=== PATIENT | female | born 1945 | race Caucasian/White ===

== ENCOUNTER 2016-08-24 06:18 | Day surgery (SDC) | payer OTHER ==
[2016-08-16 11:15] VITALS: BMI 22.8
--- NOTE | 2016-08-23 19:47 | DS ---
Discharge Summary Reason For Visit: PAINFUL BUNION DEFORMITY AND PAINFUL HAMMER TOE - Home Medications Comprehensive Discharge Medication List: Ambulatory Orders Levothyroxine [Synthroid -] 75 mcg PO DAILY 07/05/14 Ibuprofen 400 mg PO PRN PRN 08/16/16
[2016-08-24] MEDS ORDERED: LIDOCAINE HCL/PF 2% SDV 5ML VIAL ONE (07:43)
[2016-08-24] MEDS ORDERED: MIDAZOLAM HCL 2 MG/2 ML SINGLE DOSE VIAL ONE (07:43)
[2016-08-24] MEDS ORDERED: PROPOFOL 20 ML ONE ×2 (07:43→07:45)
[2016-08-24] MEDS ORDERED: SUCCINYLCHOLINE CHLORIDE 200 MG/10 ML VIAL ONE (07:45)
[2016-08-24] MEDS ORDERED: LIDOCAINE HCL 1%, 10 MG/ML (20ML VIAL) ONE (07:46)
[2016-08-24] MEDS ORDERED: BUPIVACAINE HCL/PF 0.5% (5MG/ML) 10 ML VIAL ONE (07:46)
[2016-08-24] MEDS ORDERED: ceFAZolin SODIUM 1 GM VIAL ONE (08:10)
[2016-08-24] MEDS ORDERED: ceFAZolin SODIUM 1 GM VIAL IVPB ONE (08:10)
[2016-08-24] MEDS ORDERED: DEXAMETHASONE SOD PHOSPHATE 4 MG/1 ML VIAL ONE (08:59)
[2016-08-24] MEDS ORDERED: DEXAMETHASONE SOD PHOSPHATE 4 MG/1 ML VIAL IM ONE (09:08)
[2016-08-24] MEDS ORDERED: BUPIVACAINE HCL/PF 0.5% (5MG/ML) 10 ML VIAL IJ ONE ×2 (09:08)
[2016-08-24] MEDS ORDERED: LIDOCAINE HCL 1%, 10 MG/ML (20ML VIAL) IJ ONE ×2 (09:08)
[2016-08-24] MEDS ORDERED: ONDANSETRON 4 MG/2 ML VIAL IVPUSH PRN (10:01)
[2016-08-24] MEDS ORDERED: oxyCODONE HCL 5 MG TABLET PO PRN (10:01)
[2016-08-24] MEDS ORDERED: LACTATED RINGERS SOLUTION 1,000 ML IV SCH (10:15)
--- NOTE | 2016-08-24 10:35 | OP ---
Operative Note - Note: Operative Date: 08/24/16 Pre-Operative Diagnosis: painful bunion deformity left foot, painful dislocated hammertoe deformity second toe left foot Operation: Arden osteotomy with .062 k wire left foot, second pipj arthroplasty with 2nd metatarsal ostctomy with .045 k wire left foot Findings: soft metatarsal head first with straw colored drainage on osteotomy soft second head of proximal phalanx left and second metatarsal head left foot Surgeon: Alma Rosa Arora Anesthesia: Fractional Specimens Removed: head of first metatarsal left, head of proximal phalanx second and head of second metatarsal left Estimated Blood Loss (mls): 10
[2016-08-24] MEDS ORDERED: ACETAMINOPHEN 325 MG TABLET (FP) PO PRN (10:57)
[2016-08-24 11:26] VITALS: TEMP 98
[2016-08-24 13:34] VITALS: BP 145/68; PULSE 60
--- NOTE | 2016-08-25 14:50 | PATH ---
Surgical Pathology Report Patient Name: MELINA GAFNFEY Med. Rec. #: [id number] /Age/Gender: 1945 (Age: 71) / F Account: [id number] Location: [facility] [place] [facility] Taken: 08/24/2016 Received: 08/24/2016 Reported: 08/25/2016 Physicians: Alma Rosa Arora DPM Specimen(s) Received BONE LEFT FOOT BUNION & BONE 2ND TOE HAMMER TOE LEFT FOOT Clinical History Painful left bunion deformity and painful second hammertoe deformity left foot Final Diagnosis BONE, LEFT FOOT BUNION AND LEFT SECOND TOE HUMMER TOE, BUNIONECTOMY AND ARTHROPLASTY: FRAGMENTS OF BONE AND CARTILAGE WITH DEGENERATIVE CHANGES. Electronically Signed Xavi Jiménez M.D. Gross Description Received in formalin labeled "second bone toe left foot, bone first bunion left foot" are 3 abreu, irregular portions of bone ranging from 1.2 x 0.7 x 0.6 cm to 2.0 x 1.5 x 0.4 cm. Pl[place]us[place] sections are submitted in one cassette, following decalcification. 08/24/2016 [facility]08/24/2016
--- NOTE | 2016-08-31 15:17 | OP ---
DATE OF OPERATION: 08/24/2016 OPERATION: Modified Lincoln bunionectomy with a transverse V osteotomy with 0.062 K-wire fixation, left foot, with a painful rigid 2nd proximal interphalangeal joint hammer digit with a dislocated dorsal base of the proximal phalanx overlying the metatarsal head of the 2nd metatarsal, left foot. 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 POSTOPERATIVE DIAGNOSIS: Painful hallux abductovalgus deformity of the left foot with a dislocated subluxed 2nd metatarsophalangeal joint with a hammer digit, painful 2nd toe, left foot. SURGEON: Alma Rosa Arora DPM SIDING MECHANIC: None. ANESTHESIA: Local with IV sedation. OPERATIVE FINDINGS AND PROCEDURE: The patient was prepped and brought into the operating room and placed on the table in supine position. A well-padded left ankle tourniquet was applied. The foot was elevated, prepped and draped in the usual sterile manner, and prior to the tourniquet, the patient received 1 g of Ancef preoperatively by Dr. Moran, the anesthesiologist. The tourniquet was then put on at 250 mmHg, and under satisfactory local anesthesia, after being blocked with lidocaine and Marcaine 0.5% plain, a 4-cm curvilinear medial incision was made at the level of the 1st metatarsophalangeal joint. The incision was deepened using sharp and blunt dissection, being careful to preserve all neurovascular structures and clamping and ligating any bleeders as necessary. The neurovascular bundle was identified and retracted dorsally and medially. The incision was carried down to the level of the capsule where a linear incision was made down to the level of the bone. At this time, all capsular ligamentous structures were freed from the head of the 1st metatarsal plantarly, medially, and dorsally. The lateral collateral ligaments were resected from the medial side of the incision freeing up the lateral sesamoid and the medial sesamoid. At this point, a transverse ostectomy was performed of the 1st metatarsal prominent dorsal medial eminence from superolateral to plantar medial, and the prominent exostosis removed from the 1st metatarsal head. There was noted to be some serous drainage and straw-colored drainage. The bone was semi-soft, and there was a small cystic area, and the 1st metatarsal head noted at this time. At this point, the foot was perpendicular to the table, and the transverse V osteotomy was made through and through from medial to lateral with the patients foot and bone perpendicular to the floor. The head was transposed laterally and approximated 1/3 with the width of the metatarsal. Using standard AO technique, the 0.062 K-wire was inserted from distal lateral to proximal medial, and the fixation through the head was noted to be stable on the capital fragment and in good alignment. The hallux was sitting in a more rectus position with good range of motion at this time. Using the osteotome and lynn, the remaining spicules were rasped smooth on the medial side of the remaining 1st metatarsal head. The wound was copiously irrigated with sterile saline, and the capsule was closed with 2-0 Vicryl suture, 3-0 Vicryl, and subcutaneous tissue was closed with 4-0 Vicryl sutures. The skin was then closed with 5-0 nylon in a running interlocking fashion. The wire was cut and a cap was placed over the 0.062 K-wire. Attention was then directed over the proximal interphalangeal joint of the 2nd toe, left foot, and the 2nd MPJ area of that 2nd left foot, and the incision, a 4-cm linear incision, was made over the head of the proximal interphalangeal joint going down past the 2 nd MPJ area overlying the 2nd MPJ joint. Attention was then directed where the incisions were deepened through the subcutaneous tissue. Care was taken to identify and retract all neurovascular structures, and at this time all bleeders were cauterized and ligated as necessary. A transverse tenotomy and capsulotomy were made at the proximal interphalangeal joint. The head of the proximal phalanx was freed, capsule and ligament attachments, and using a sagittal saw, the head of the proximal phalanx was resected and removed. The bone was noted to be soft, and there was a hollow cyst in the proximal phalanx shaft. There was a hollow area there after the bone was resected and removed. Attention was then directed to 2nd metatarsophalangeal joint, where the extensor tendon was retracted lateralwards. All the capsular ligamentous attachments were freed up around the head of the metatarsal and the base of the proximal phalanx. At this time, it was noted that the base of the proximal phalanx was completely dorsally on top of the head of the 2nd metatarsal, and the 2nd metatarsal was plantar grade. Patient was ambulating on that, and there was a 0.5 cm circumscribed hypertrophic lesion on the bottom of her foot with her chief complaint of pain being in that area. At this time, a transverse ostectomy was performed of the metatarsal head. The bone was soft. It had a lot of erosions at the distal metatarsal head and the neck of the metatarsal head. There was straw-colored drainage on cutting of the bone, as well. That bone was extremely soft. Using a 0.045 K-wire, the wire was retrograded through the cystic portion through the base of the proximal phalanx out the cystic portion of the toe going through the distal tuft to the 2nd toe and retrograded back through the metatarsal shaft. All the bone around the metatarsal head was noted to be free of spiculization. The area was copiously lavaged, and the wire was noted to be sitting in anatomic alignment with a matched 0.045 K-wire. At this time, the capsule was closed with 2-0 Vicryl sutures. The subcutaneous tissue was closed with 4-0 Vicryl sutures. Prior to the skin closure, the three simple interrupted sutures in the transverse extensor tenotomy were closed prior to the 4-0 subcutaneous closure. At this time, the toe was noted to fit in a rectus alignment. The hammer digit was relaxed, and the retrograde pressure underneath the 2nd metatarsal was noted to be in a rectus position. At this time, the skin was closed with a running interlocking 5.0 nylon suture. The wounds were cleaned with sterile saline. The pins were painted with Betadine paint. A 4-mm 1-mL dexamethasone injection was given between the two incision sites. They were reblocked with half and half 0.5% 0.25% Marcaine and lidocaine combination with no epinephrine. Approximately 5 more mL were given into the incision areas. The areas were painted with Betadine, Adaptic, gauze, and 4x4s and 4-inch Jessica were applied along with Co-Flex. A 4-inch Aaron wrap was applied to the foot. The tourniquet was released, and the foot was noted to have a normal hyperemic flush to all of the digits to preoperative levels. The patient was placed in a posterior fiberglass splint, and Aaron wraps were applied around that to hold the patient at 90 degrees. The patient will be strictly nonweightbearing. Currently, the patient tolerated the procedure well. She was sent to the recovery room with vital signs stable, and the patient will be discharged with written and oral instructions. They were also given to her preoperatively. WOUND EXPECTANCY: Clean-contaminated. HAYLEY ARITA/[id number]
== END 2016-08-24 13:20 | disposition home or self-care (01) ==
LOC: JASU-SURG 06:18
PROVIDERS: ATTEND Podiatrist
PROC: 0Q9 Lower Bones, Drainage (ICD-10-PCS; 2016-08-24)
PROC: 0QBR0ZZ Excision of Left Toe Phalanx, Open Approach (ICD-10-PCS; 2016-08-24)
PROC: 0QS Lower Bones, Reposition (ICD-10-PCS; principal; 2016-08-24 08:00)
DX: M20.12 Hallux valgus (acquired), left foot (principal); M21.612 Bunion of left foot; S93.125A Dislocation of metatarsophalangeal joint of left lesser toe(s), initial encounter; X58.XXXA Exposure to other specified factors, initial encounter; Y93.9 Activity, unspecified; Y92.9 Unspecified place or not applicable
CPT/HCPCS: 73630-TC-LT; 88304-TC; 88311-TC; 94760

== ENCOUNTER 2017-11-05 08:56 | Emergency (ER) | payer OTHER ==
[2017-11-05 09:11] VITALS: BP 159/70; PULSE 80; TEMP 98.8; BMI 21.9
--- NOTE | 2017-11-05 09:20 | PDOC ---
History of Present Illness - General Chief Complaint: Edema Stated Complaint: SENT BY PMD FOR VENOUS DOPPLER RIGHT LOWER LEG Time Seen by Provider: 11/05/17 08:59 History Source: Patient - History of Present Illness Initial Comments: 11/05/17 09:07 Pt is a 72 yo F with PMH of hypothyroid was sent by Dr. Molina to the ED for doppler of RLE. Pt states that RLE has been swollen for the past month and has not gone down. PT also states that she experiences pain in the R ankle/heel wihen she walks. She denies fever, chills, SOB, LOC, hemoptysis, dizziness, lightheadedness. She denies trauma, injury, recent travel, hormone use, recent surgeries. PCP: Dr. Molina PMH: hypothyroid PSH: bunionectomy 2017 Meds: levothyroxine allergies: nkda Past History - Past Medical History Allergies/Adverse Reactions: Allergies Allergy/AdvReac Type Severity Reaction Status Date / Time No Known Allergies Allergy Verified 11/05/17 09:01 Home Medications: Ambulatory Orders Levothyroxine [Synthroid -] 75 mcg PO DAILY 07/05/14 Anemia: No Asthma: No Cancer: No Cardiac Disorders: No CVA: No COPD: No CHF: No Dementia: No Diabetes: No GI Disorders: No Disorders: No HTN: No Hypercholesterolemia: No Liver Disease: No Seizures: No Thyroid Disease: Yes (HYPOTHYROID) - Surgical History Abdominal Surgery: No Appendectomy: No Cardiac Surgery: No Cholecystectomy: No Lung Surgery: No Neurologic Surgery: No Orthopedic Surgery: No - Suicide/Smoking/Psychosocial Hx Smoking Status: No Smoking History: Former smoker Have you smoked in the past 12 months: No Number of Cigarettes Smoked Daily: 20 If you are a former smoker, when did you quit?: 2007 Hx Alcohol Use: No Drug/Substance Use Hx: No Substance Use Type: None Review of Systems - Review of Systems Constitutional: No: Chills, Fever, Weakness HEENTM: No: Recent change in vision Respiratory: Yes: Cough. No: Orthopnea, Shortness of Breath, Wheezing Cardiac (ROS): No: Chest Pain, Lightheadedness, Palpitations, Syncope ABD/GI: No: Constipated, Diarrhea, Nausea, Vomiting, Abdominal cramping : No: Burning, Dysuria Musculoskeletal: Yes: See HPI. No: Muscle Pain, Muscle Weakness, Neck Pain Integumentary: Yes: Other (RLE edema). No: Bruising, Dryness, Erythema, Lesions , Lumps Neurological: No: Headache, Numbness, Paresthesia, Weakness, Unsteady Gait, Ataxia *Physical Exam - Physical Exam General Appearance: Yes: Nourished, Appropriately Dressed. No: Apparent Distress HEENT: positive: EOMI, RONNI Neck: positive: Trachea midline, Supple. negative: Carotid bruit, Lymphadenopathy (R), Lymphadenopathy (L) Respiratory/Chest: positive: Lungs Clear, Normal Breath Sounds. negative: Crackles, Rales, Stridor, Wheezing Cardiovascular: positive: Regular Rhythm, Regular Rate, S1, S2. negative: Edema , JVD Vascular Pulses: Carotid (R): 2+, Carotid (L): 2+, Dorsalis-Pedis (R): 2+ Gastrointestinal/Abdominal: positive: Normal Bowel Sounds, Soft. negative: Rebound, Tenderness Musculoskeletal: positive: Other (Full ROM of R ankle). negative: CVA Tenderness, Decreased Range of Motion, Muscle Spasm Extremity: positive: Normal Capillary Refill, Swelling (RLE>LLE. 2+ pitting edema), Calf Tenderness (R proximal calf) Integumentary: positive: Normal Color, Dry, Warm, Swelling (RLE>LLE). negative : Erythema, Cold, Clammy, Moist, Petechiae, Rash, Bruising Neurologic: positive: landscape technician II-XII NML intact, Fully Oriented, Alert, Normal Mood/ Affect, Normal Response, Motor Strength 5/5 Medical Decision Making - Medical Decision Making 11/05/17 09:27 Pt is a 72 yo female with PMH of hypothyroid sent to ED by PCP for doppler of RLE. Pt has RLE edema >left DDX: DVT, PE, bakers cyst, cellulitis, septic arthritis, CHF, ARF, lymphatic obstruction, ankle injury, venous insufficiency, myxedema Pt does not have history of heart or kidney problems, lungs were clear and normal heart sounds. Low suspicion for CHF, ARF as causes for RLE edema. Patient denies recent trauma/injury, no concern for ankle fracture or injury. Patient is not tachycardic, not tachypneic, denies hemoptysis, no hx of cancer or recent surgery, no hx of DVT or PE. Well's score of 3. No mass palpable with knee extension, no bruising around ankle, low suspicion for gautam cyst rupture. Pt is afebrile, no erythema or warmth, low suspicion for cellulitis. Pt has pitting edema bilaterally R>L. Low suspicion for myxedema especially since no other signs of clinical hypothyroidism. Recommend PCP follow up. RLE doppler: No signs of DVT. Pt must have repeat study to confirm. DDX for swelling could include gout, venous insufficiency, lymphatic obstruction, hypothyroidism. Pt vital signs wnl, is ambulatory and does not have an acute process. Pt has good PCP follow up. Pt stable for discharge home with strict return precautions. Pt agreed with plan and verbalized understanding. *DC/Admit/Observation/Transfer Diagnosis at time of Disposition: Right leg swelling - Discharge Dispostion Disposition: HOME Condition at time of disposition: Stable Decision to Admit order: No - Referrals Referrals: Elpidio Molina MD [Staff Physician] - - Patient Instructions Printed Discharge Instructions: DI for Peripheral Edema, Unilateral Additional Instructions: You were seen here today because you were sent here by your doctor to rule out a DVT. A DVT is a clot in your leg that could cause swelling and pain and needs to be managed urgently. We did an ultrasound study of your right leg which showed no clots. You need to get another ultrasound study of your right leg in about one week to confirm. Please follow up with your PCP. Please elevate your legs at night and apply warm compresses if you experience pain. Follow up with your PCP. Please come back to the emergency room if: if your symptoms get worse, if your leg continues to swell, if you experience pain, if you notice any skin changes such as redness or bruising, if you are unable to walk, if you start getting short of breath or dizzy, or if any new concerning symptom develops. Thank you - Post Discharge Activity
[2017-11-05] MEDS ORDERED: ACETAMINOPHEN 325 MG TABLET (FP) PO ONE (09:43)
[2017-11-05] MEDS ORDERED: ACETAMINOPHEN 325 MG TABLET (FP) ONE (09:49)
--- NOTE | 2017-11-05 09:51 | PDOC ---
Attending Attestation - Resident Resident Name: RachelleMarisa - ED Attending Attestation I have performed the following: I have examined & evaluated the patient, The case was reviewed & discussed with the resident, I agree w/resident's findings & plan, Exceptions are as noted - HPI HPI: 11/05/17 09:45 72 F with h/o hypothyroid presents to ED with 1 month of RLE swelling. Pt denies any injury or falls. She states that the swelling started around her foot and ankle but has since progressed up to her lara. Pt denies any redness. Endorses pain with ambulation but is still able to walk without assistance. No h /o gout. No F/C. No recent travel/immobilization. No h/o DVT. - Physicial Exam PE: 11/05/17 09:51 "GENERAL: Awake, alert, and fully oriented, in no acute distress. HEAD: No signs of trauma EYES: PERRLA, EOMI, sclera anicteric, conjunctiva clear ENT: Auricles normal inspection, hearing grossly normal, nares patent, oropharynx clear without exudates. Moist mucosa NECK: Nontender, no stepoffs, Normal ROM, supple, no lymphadenopathy, JVD, or masses LUNGS: Breath sounds equal, clear to auscultation bilaterally. No wheezes, and no crackles HEART: Regular rate and rhythm, normal S1 and S2, no murmurs, rubs or gallops ABDOMEN: Soft, nontender, normoactive bowel sounds. No guarding, no rebound. No masses EXTREMITIES: + RLE edema, no bony tenderness, no erythema, normal ROM NEUROLOGICAL: Cranial nerves II through XII intact. 5/5 strength and sensation in all extremities, Normal speech, normal gait, normal cerebellar function SKIN: Warm, Dry, normal turgor, no rashes or lesions noted. " - Medical Decision Making 11/05/17 09:52 72 F with unilateral atraumatic swelling of RLE. Will need to r/o DVT, though pt with no known risk factors. Pt with no infectious symptoms, no erythema, normal ROM, making septic arthritis less likely. No history of trauma or injury and no bony tenderness on exam to necessitate XR imaging. - RLE doppler 11/05/17 10:13 Doppler negative for DVT Suspect msk etiology vs gout vs arthritis Will DC pt with ortho f/u. Pt instructed to repeat US in 1 week to confirm DVT ruled out. Pt is well appearing, with normal vitals. Clinically stable for DC at this time. I discussed the physical exam findings, ancillary test results and final diagnoses with the patient. I answered all of the patient's questions. The patient was satisfied with the care received and felt comfortable with the discharge plan and treatment plan. The patient agrees to follow up with the primary care physician within 24-72 hours.
== END 2017-11-05 10:54 | disposition home or self-care (01) ==
LOC: FER 08:56
DX: R22.41 Localized swelling, mass and lump, right lower limb (principal); E03.9 Hypothyroidism, unspecified; Z87.891 Personal history of nicotine dependence
CPT/HCPCS: 93971-TC; 99281-25

== ENCOUNTER 2018-01-19 23:30 | Observation (INO) | payer OTHER ==
--- NOTE | 2018-01-19 23:57 | PDOC ---
History of Present Illness - General Chief Complaint: Lightheaded Stated Complaint: Abnormal Labs (HGB) Time Seen by Provider: 01/19/18 23:39 - History of Present Illness Initial Comments: 01/20/18 00:32 This 72-year-old woman with a history of hypothyroidism but no other medical problems was sent to the ER because of an abnormal lab value. The patient was seen by her PMD () earlier today for a few week history of lightheadedness, especially with exertion(such as walking).She also has had some shortness of breath with exertion. She denies chest or abdominal pain. No known history of anemia. She denies black or bloody stools. The patient states that her lightheadedness resolved after "blew out " her ear in the office earlier today. No easy bruising/bleeding noted. No new medication/supplements/vitamin Past History - Past Medical History Allergies/Adverse Reactions: Allergies Allergy/AdvReac Type Severity Reaction Status Date / Time No Known Allergies Allergy Verified 11/05/17 09:01 Home Medications: Ambulatory Orders Levothyroxine [Synthroid -] 75 mcg PO DAILY 07/05/14 Anemia: No Asthma: No Cancer: No Cardiac Disorders: No CVA: No COPD: No CHF: No Dementia: No Diabetes: No GI Disorders: No Disorders: No HTN: No Hypercholesterolemia: No Liver Disease: No Seizures: No Thyroid Disease: Yes (HYPOTHYROID) - Surgical History Abdominal Surgery: No Appendectomy: No Cardiac Surgery: No Cholecystectomy: No Lung Surgery: No Neurologic Surgery: No Orthopedic Surgery: No - Suicide/Smoking/Psychosocial Hx Smoking Status: No Smoking History: Former smoker Have you smoked in the past 12 months: No Number of Cigarettes Smoked Daily: 20 If you are a former smoker, when did you quit?: 2007 Information on smoking cessation initiated: No Hx Alcohol Use: No Drug/Substance Use Hx: No Substance Use Type: None Review of Systems - Review of Systems Able to Perform ROS?: Yes Comments:: 12 point review of systems is negative except for what is noted in the history of present illness *Physical Exam - Vital Signs Last Vital Signs Temp Pulse Resp BP Pulse Ox 98.2 F 79 16 153/69 99 01/19/18 23:50 01/19/18 23:50 01/19/18 23:50 01/19/18 23:50 01/19/18 23:50 - Physical Exam Comments: GENERAL: Adult female, alert and oriented 3, in no acute distress HEAD: Normal with no signs of trauma. EYES: PERRLA, EOMI, sclera anicteric, conjunctiva clear. ENT: Ears normal, nares patent, oropharynx clear without exudates. Moist mucous membranes. NECK: Normal range of motion, supple without lymphadenopathy, JVD, or masses. LUNGS: Breath sounds equal, clear to auscultation bilaterally. No wheezes, and no crackles. HEART:Regular rate and rhythm, normal S1 and S2 without murmur, rub or gallop. ABDOMEN:.normal bowel sounds No guarding,tenderness or rebound.No masses No distention. Rectal: Light brown stool in ampulla; no masses palpable EXTREMITIES: Normal range of motion, no edema. No clubbing or cyanosis. No erythema, or tenderness. NEUROLOGICAL: Cranial nerves II through XII grossly intact. Normal speech. No focal neurological deficits. MUSCULOSKELETAL: Back non-tender to palpation, no CVA tenderness SKIN: Warm, Dry, normal turgor, no rashes or lesions noted. ED Treatment Course - LABORATORY CBC & Chemistry Diagram: 01/20/18 00:18 01/20/18 00:18 Medical Decision Making - Medical Decision Making 01/20/18 02:24 Repeat labs confirm severe anemia with hemoglobin 6.4/Hct 22.6 Stool heme negative [facility] not admit here; [facility]. 01/20/18 02:38 Case discussed with CHEYANNE Manley,[facility] service. Patient to be admitted for transfusion and workup of etiology of anemia. Inpatient admission, Dr Magana Plan discussed with patient and her son who understand and agree. 01/20/18 03:14 12-lead electrocardiogram performed and interpreted by me: Normal sinus rhythm at 70 bpm; there is left axis deviation; inverted T-wave in V4 and flattened T wave in V5 but no other ST or T-wave abnormalities. There is no previous tracing for comparison. 01/20/18 03:26 Portable chest x-ray is performed. preliminary interpretation: Borderline cardiomegaly, bilateral lung markings consistent with chronic changes; no effusion/infiltrates or masses evident. *DC/Admit/Observation/Transfer Diagnosis at time of Disposition: Anemia Qualifiers: Anemia type: unspecified type Qualified Code(s): D64.9 - Anemia, unspecified - Discharge Dispostion Condition at time of disposition: Guarded Decision to Admit order: Yes - Referrals - Patient Instructions - Post Discharge Activity
[2018-01-20 01:15] LABS: ALBUMIN 3.3 g/dl (3.4-5.0); ALK PHOS 121 U/L (45-117); ANION GAP 9 MMOL/L (8-16); BILIRUBIN,TOTAL 0.8 mg/dL (0.2-1); BLOOD UREA NITROGEN 18 mg/dL (7-18); CALCIUM 8.3 mg/dL (8.5-10.1); CHLORIDE 107 mmol/L (98-107); CO2 24 mmol/L (21-32); CREATININE 0.6 mg/dL (0.55-1.3); GLUCOSE,RANDOM 89 mg/dL (74-106); POTASSIUM 3.1 mmol/L (3.5-5.1); SGOT/AST 15 U/L (15-37); SGPT/ALT 14 U/L (13-61); SODIUM 141 mmol/L (136-145); TOT PROT 6.4 g/dl (6.4-8.2)
[2018-01-20 01:25] LABS: BASO % 1.1 % (0-2.0); EOS % 7.1 % (0-4.5); HEMATOCRIT 22.6 % (32.4-45.2); LYMPH % 22.4 % (8-40); MCHC 28.2 g/dl (32.0-36.0); MEAN CELL VOLUME 62.1 fl (80-96); MEAN PLT VOLUME 8.2 fl (7.5-11.1); MONO % 8.3 % (3.8-10.2); NEUT % 61.1 % (42.8-82.8); PLATELET COUNT 321 K/MM3 (134-434); RBC 3.63 M/mm3 (3.60-5.2); RDW 18.3 % (11.6-15.6)
[2018-01-20 01:27] LABS: MCH 17.5 pg (25.7-33.7)
[2018-01-20 01:29] LABS: HEMOGLOBIN 6.4 GM/dL (10.7-15.3)
[2018-01-20 02:00] LABS: ANISOCYTOSIS 3+; MACROCYTOSIS 0
[2018-01-20 02:01] LABS: INR 1.07 (0.83-1.09); PROTHROMBIN TIME (PATIENT) 12.6 SEC (9.7-13.0)
[2018-01-20 02:04] LABS: ACTIVATED PTT 27.4 SECONDS (25.2-36.5)
[2018-01-20] MEDS ORDERED: POTASSIUM CHLORIDE TABS 20 MEQ TABLET.ER (FP) PO ONE ×2 (02:07→02:10)
[2018-01-20 06:16] VITALS: BMI 21.5
[2018-01-20 07:15] LABS: PH,URINE 6.5 (4.5-8); URINE APPEARANCE Clear; URINE BILIRUBIN Negative (NEGATIVE); URINE COLOR Amber; URINE GLUCOSE (UA) Negative (NEGATIVE); URINE KETONE Negative (NEGATIVE); URINE LEUK ESTERASE Negative (NEGATIVE); URINE NITRITE Negative (NEGATIVE); URINE PROTEIN Negative (NEGATIVE); URINE UROBILINOGEN 0.2 (0.2-1.0)
--- NOTE | 2018-01-20 08:17 | HP ---
Admitting History and Physical - Past Medical History ...: No - Smoking History Smoking history: Former smoker Have you smoked in the past 12 months: No Aproximately how many cigarettes per day: 20 If you are a former smoker, when did you quit?: 2007 - Alcohol/Substance Use Hx Alcohol Use: No Home Medications - Allergies Allergies/Adverse Reactions: Allergies Allergy/AdvReac Type Severity Reaction Status Date / Time No Known Allergies Allergy Verified 11/05/17 09:01 - Home Medications Home Medications: Ambulatory Orders Levothyroxine [Synthroid -] 75 mcg PO DAILY 07/05/14 Physical Examination Vital Signs: Vital Signs Temperature 98.1 F 01/20/18 06:00 Pulse Rate 18 L 01/20/18 06:00 Respiratory Rate 70 H 01/20/18 06:00 Blood Pressure 144/60 01/20/18 06:00 O2 Sat by Pulse Oximetry (%) 98 01/20/18 06:00 Labs: CBC, BMP 01/20/18 00:18 01/20/18 00:18
--- NOTE | 2018-01-20 10:17 | HP ---
CHIEF COMPLAINT: shortness of breath PCP: Dr Jones HISTORY OF PRESENT ILLNESS: Patient is a 72 y/o female with as past medical history of hypothyroidism, osteoporosis and GERD. She reports with dizziness for the past week. She was evaluated by her primary care physician on 01/18/2018. Her hemoglobin was reported to be 6.1 and she was referred to the emergency department for emergent blood transfusion.Patient denies any dark stools. ER course was notable for: (1)hemoglobin 6.4 (2)Chest x-ray, COPD no acute infiltrate or effusion (3)ekg Normal sinus rhythm, Left axis deviation, nonspecific T-wave abnormality. Recent Travel:none PAST MEDICAL HISTORY:see hpi PAST SURGICAL HISTORY: kyphoplasty 2017 Social History:retired, resides at home with son Smoking:quit smoking last year Alcohol:quit "several" years ago Drugs: none Family History: mother: cancer unknown which type father: unknown Allergies No Known Allergies Allergy (Verified 11/05/17 09:01) HOME MEDICATIONS: Home Medications Medication Instructions Recorded Levothyroxine [Synthroid -] 75 mcg PO DAILY 07/05/14 REVIEW OF SYSTEMS CONSTITUTIONAL: Absent: fever, chills, diaphoresis, generalized weakness, malaise, loss of appetite, weight change HEENT: Absent: rhinorrhea, nasal congestion, throat pain, throat swelling, difficulty swallowing, mouth swelling, ear pain, eye pain, visual changes CARDIOVASCULAR: Absent: chest pain, syncope, palpitations, irregular heart rate, lightheadedness , peripheral edema RESPIRATORY: Absent: cough, shortness of breath, dyspnea with exertion, orthopnea, wheezing, stridor, hemoptysis GASTROINTESTINAL: Absent: abdominal pain, abdominal distension, nausea, vomiting, diarrhea, constipation, melena, hematochezia GENITOURINARY: Absent: dysuria, frequency, urgency, hesitancy, hematuria, flank pain, genital pain MUSCULOSKELETAL: Absent: myalgia, arthralgia, joint swelling, back pain, neck pain SKIN: Absent: rash, itching, pallor HEMATOLOGIC/IMMUNOLOGIC: Absent: easy bleeding, easy bruising, lymphadenopathy, frequent infections ENDOCRINE: Absent: unexplained weight gain, unexplained weight loss, heat intolerance, cold intolerance NEUROLOGIC: present: dizziness Absent: headache, focal weakness or paresthesias, unsteady gait, seizure, mental status changes, bladder or bowel incontinence PSYCHIATRIC: Absent: anxiety, depression, suicidal or homicidal ideation, hallucinations. PHYSICAL EXAMINATION Vital Signs - 24 hr 01/19/18 01/20/18 01/20/18 23:50 02:59 04:43 Temperature 98.2 F 98.1 F 98.1 F Pulse Rate 79 66 18 L Respiratory 16 18 66 H Rate Blood Pressure 153/69 133/59 L 133/59 L O2 Sat by Pulse 99 99 99 Oximetry (%) 01/20/18 06:00 Temperature 98.1 F Pulse Rate 18 L Respiratory 70 H Rate Blood Pressure 144/60 O2 Sat by Pulse 98 Oximetry (%) GENERAL: Awake, alert, and fully oriented, in no acute distress. HEAD: Normal with no signs of trauma. EYES: Pupils equal, round and reactive to light, extraocular movements intact, sclera anicteric, conjunctiva clear. No lid lag. EARS, NOSE, THROAT: Ears normal, nares patent, oropharynx clear without exudates. Moist mucous membranes. NECK: Normal range of motion, supple without lymphadenopathy, JVD, or masses. LUNGS: Breath sounds equal, clear to auscultation bilaterally. No wheezes, and no crackles. No accessory muscle use. HEART: Regular rate and rhythm, normal S1 and S2 without murmur, rub or gallop. ABDOMEN: Soft, nontender, not distended, normoactive bowel sounds, no guarding, no rebound, no masses. No hepatomegaly or splenomegaly. MUSCULOSKELETAL: Normal range of motion at all joints. No bony deformities or tenderness. No CVA tenderness. UPPER EXTREMITIES: 2+ pulses, warm, well-perfused. No cyanosis. No clubbing. No peripheral edema. LOWER EXTREMITIES: 2+ pulses, warm, well-perfused. No calf tenderness. No peripheral edema. NEUROLOGICAL: Cranial nerves II-XII intact. Normal speech. Normal gait. PSYCHIATRIC: Cooperative. Good eye contact. Appropriate mood and affect. SKIN: Warm, dry, normal turgor, no rashes or lesions noted, normal capillary refill. Laboratory Results - last 24 hr 01/20/18 01/20/18 01/20/18 00:03 00:10 00:10 WBC RBC Hgb Hct MCV MCH MCHC RDW Plt Count MPV Absolute Neuts (auto) Neutrophils % Lymphocytes % Monocytes % Eosinophils % Basophils % Nucleated RBC % Hypochromia Polychromasia Poikilocytosis Anisocytosis Microcytosis Macrocytosis PT with INR INR PTT (Actin FS) Sodium Potassium Chloride Carbon Dioxide Anion Gap BUN Creatinine Creat Clearance w eGFR Random Glucose Calcium Ferritin 2.5 L Total Bilirubin AST ALT Alkaline Phosphatase Creatine Kinase Troponin I Total Protein Albumin Urine Color Chana Urine Appearance Clear Urine pH 6.5 Ur Specific [place] 1.015 Urine Protein Negative Urine Glucose (UA) Negative Urine Ketones Negative Urine Blood Negative Urine Nitrite Negative Urine Bilirubin Negative Urine Urobilinogen 0.2 Ur Leukocyte Esterase Negative Stool Occult Blood Blood Type B POSITIVE Antibody Screen Negative Crossmatch 01/20/18 01/20/18 01/20/18 00:18 00:18 00:18 WBC 4.0 RBC 3.63 Hgb 6.4 L* Hct 22.6 L MCV 62.1 L MCH 17.5 L MCHC 28.2 L RDW 18.3 H Plt Count 321 MPV 8.2 Absolute Neuts (auto) 2.4 Neutrophils % 61.1 Lymphocytes % 22.4 Monocytes % 8.3 Eosinophils % 7.1 H Basophils % 1.1 Nucleated RBC % 0 Hypochromia 2+ Polychromasia 1+ Poikilocytosis 3+ Anisocytosis 3+ Microcytosis 3+ Macrocytosis 0 PT with INR 12.60 INR 1.07 PTT (Actin FS) 27.4 Sodium 141 Potassium 3.1 L Chloride 107 Carbon Dioxide 24 Anion Gap 9 BUN 18 Creatinine 0.6 Creat Clearance w eGFR > 60 Random Glucose 89 Calcium 8.3 L Ferritin Total Bilirubin 0.8 AST 15 ALT 14 Alkaline Phosphatase 121 H Creatine Kinase 96 Troponin I < 0.02 Total Protein 6.4 Albumin 3.3 L Urine Color Urine Appearance Urine pH Ur Specific [place] Urine Protein Urine Glucose (UA) Urine Ketones Urine Blood Urine Nitrite Urine Bilirubin Urine Urobilinogen Ur Leukocyte Esterase Stool Occult Blood Blood Type Antibody Screen Crossmatch 01/20/18 01/20/18 00:20 01:49 WBC RBC Hgb Hct MCV MCH MCHC RDW Plt Count MPV Absolute Neuts (auto) Neutrophils % Lymphocytes % Monocytes % Eosinophils % Basophils % Nucleated RBC % Hypochromia Polychromasia Poikilocytosis Anisocytosis Microcytosis Macrocytosis PT with INR INR PTT (Actin FS) Sodium Potassium Chloride Carbon Dioxide Anion Gap BUN Creatinine Creat Clearance w eGFR Random Glucose Calcium Ferritin Total Bilirubin AST ALT Alkaline Phosphatase Creatine Kinase Troponin I Total Protein Albumin Urine Color Urine Appearance Urine pH Ur Specific [place] Urine Protein Urine Glucose (UA) Urine Ketones Urine Blood Urine Nitrite Urine Bilirubin Urine Urobilinogen Ur Leukocyte Esterase Stool Occult Blood Negative Blood Type B POSITIVE Antibody Screen Crossmatch See Detail ASSESSMENT/PLAN: 1) heme: microcytic anemia - 2 unit of prbc ordered, repeat hemoglobin after 2nd unit, pending iron studies - pt reports she has not never underwent a colonscopy, stool guiac is negative, patient will require GI follow up 2) endo hypothyroidism - pending tsh, continue home dose synthroid f/e/n - regular diet - replete electrolytes prn ppx - oob - defer ac secondary to anemia disp: pt require obsv admission Visit type - Emergency Visit Emergency Visit: Yes ED Registration Date: 01/20/18 Care time: The patient presented to the Emergency Department on the above date and was hospitalized for further evaluation of their emergent condition. - New Patient This patient is new to me today: Yes Date on this admission: 01/20/18 - Critical Care Critical Care patient: No
--- NOTE | 2018-01-20 10:22 | EKG ---
Test Reason : Blood Pressure : / mmHG Vent. Rate : 070 BPM Atrial Rate : 070 BPM P-R Int : 128 ms QRS Dur : 082 ms QT Int : 414 ms P-R-T Axes : 091 -67 025 degrees QTc Int : 447 ms POOR DATA QUALITY, INTERPRETATION MAY BE ADVERSELY AFFECTED NORMAL SINUS RHYTHM LEFT AXIS DEVIATION NONSPECIFIC T WAVE ABNORMALITY ABNORMAL ECG NO PREVIOUS ECGS AVAILABLE Confirmed by CHRISTINE HENRY MD ([id number]) on 01/20/2018 10:22:02 AM Referred By: MD WILLIAMSON Confirmed By:CHRISTINE HENRY MD
--- NOTE | 2018-01-20 12:12 | PN ---
Progress Note (short form) - Note Progress Note: Patient is a 72 yo female admitted with fatigue and severe microcytic (?iron def ) anemia. No specific GI symptoms and denies melena or BRBPR. No prior hx anemia and rare use of ASA (denies NSAID use or recent ETOH). No prior EGD or colonoscopy. Consult dictated Most likely occult GI blood loss. Agree with PRBC transfusion and await iron studies (ferritin level low). If patient agreeable, will arrange for both EGD and colonoscopy on Tuesday
[2018-01-20 13:48] LABS: BASO % 0.5 % (0-2.0); EOS % 3.6 % (0-4.5); HEMATOCRIT 30.5 % (32.4-45.2); HEMOGLOBIN 9.2 GM/dl (10.7-15.3); LYMPH % 19.1 % (8-40); MCHC 30.2 g/dl (32.0-36.0); MEAN CELL VOLUME 69.4 fl (80-96); MEAN PLT VOLUME 7.3 fl (7.5-11.1); MONO % 7.7 % (3.8-10.2); NEUT % 69.1 % (42.8-82.8); PLATELET COUNT 319 K/MM3 (134-434); RBC 4.39 M/mm3 (3.60-5.2); WHITE BLOOD COUNT 4.4 K/mm3 (4.0-10.8)
[2018-01-20 13:56] LABS: ANION GAP 5 MMOL/L (8-16); BLOOD UREA NITROGEN 13 mg/dl (7-18); CALCIUM 8.5 mg/dl (8.4-10.2); CHLORIDE 106 mmol/L (98-107); CO2 23 mmol/L (22-28); CREATININE 0.5 mg/dl (0.6-1.3); GLUCOSE,RANDOM 134 mg/dl (74-106); POTASSIUM 3.8 mmol/L (3.5-5.1); SODIUM 134 mmol/L (136-145)
[2018-01-20 15:06] LABS: ADD RBC MORPHOLOGY YES
--- NOTE | 2018-01-20 15:48 | PN ---
Progress Note (short form) - Note Progress Note: Spoke with son,Brayan Cash, , and will plan for GI endoscopy on Tuesday. Will begin on clear liquids Tuesday dinner and give Nulytely prep on Tuesday.
[2018-01-21 06:08] LABS: SERUM IRON SATURATION 2 % (15-55); TOTAL IRON BINDING CAPACITY 455 ug/dL (250-450); UIBC 445 ug/dL (118-369)
[2018-01-21] MEDS: LEVOTHYROXINE NA 75 MCG TABLET (FP) PO SCH (06:08)
--- NOTE | 2018-01-21 08:16 | PN ---
Physical Exam: SUBJECTIVE: Patient seen and examined. Pt c/o dry cough and Rt calf pain, denies cp, sob, palpitations, abdominal pain,N/V/D,melena or urinary symptoms. OBJECTIVE: Vital Signs Period Temp Pulse Resp BP Sys/Barriga Pulse Ox Last 24 Hr 97.8 F-98.2 F 64-76 18-19 126-147/48-69 96-98 GENERAL: The patient is awake, alert, and fully oriented, in no acute distress. HEAD: Normal with no signs of trauma. EYES: PERRL, extraocular movements intact, sclera anicteric, conjunctiva clear. No ptosis. ENT: Ears normal, nares patent, oropharynx clear without exudates, moist mucous membranes. NECK: Trachea midline, full range of motion, supple. LUNGS: Breath sounds equal, clear to auscultation bilaterally, no wheezes, no crackles, no accessory muscle use. HEART: Regular rate and rhythm, S1, S2 without murmur, rub or gallop. ABDOMEN: Soft, nontender, nondistended, normoactive bowel sounds, no guarding, no rebound, no hepatosplenomegaly, no masses. EXTREMITIES: 2+ pulses, warm, well-perfused, no edema, Rt calf tenderness NEUROLOGICAL: Cranial nerves II through XII grossly intact. Normal speech, gait not observed. PSYCH: Normal mood, normal affect. SKIN: Warm, dry, normal turgor, no rashes or lesions noted Laboratory Results - last 24 hr 01/20/18 01/20/18 01/20/18 00:10 01:49 12:45 WBC RBC Hgb Hct MCV MCH MCHC RDW Plt Count MPV Absolute Neuts (auto) Neutrophils % Lymphocytes % Monocytes % Eosinophils % Basophils % Sodium Potassium Chloride Carbon Dioxide Anion Gap BUN Creatinine Creat Clearance w eGFR Random Glucose Calcium Iron 10 L TIBC 455 H Iron Saturation 2 L Stool Occult Blood Negative Blood Type B POSITIVE Crossmatch See Detail 01/20/18 01/20/18 13:40 13:40 WBC 4.4 RBC 4.39 Hgb 9.2 L Hct 30.5 L D MCV 69.4 L MCH 21.0 L MCHC 30.2 L RDW 23.0 H D Plt Count 319 MPV 7.3 L Absolute Neuts (auto) 3.1 Neutrophils % 69.1 Lymphocytes % 19.1 Monocytes % 7.7 Eosinophils % 3.6 Basophils % 0.5 Sodium 134 L Potassium 3.8 Chloride 106 Carbon Dioxide 23 Anion Gap 5 L BUN 13 Creatinine 0.5 L Creat Clearance w eGFR > 60 Random Glucose 134 H D Calcium 8.5 Iron TIBC Iron Saturation Stool Occult Blood Blood Type Crossmatch Active Medications Generic Name Dose Route Start Last Admin Trade Name Freq PRN Reason Stop Dose Admin Levothyroxine Sodium 75 mcg 01/21/18 07:00 01/21/18 06:08 Synthroid - PO 75 mcg DAILY@0700 BRITTANY Administration Polyethylene Glycol/Electrolytes 4,000 ml 01/22/18 12:00 Nulytely PO 01/22/18 12:01 ONCE ONE Imaging CxR: No acute pathology ASSESSMENT/PLAN: Patient is a 72 y/o female with as past medical history of hypothyroidism, osteoporosis and GERD.Admitted with anemia. *Microcytic anemia - s/p 2 units of blood transfusion - H/H stable now -fecal occult neg - lab low - fe - started on Fe pills - GI input appreciated- plan EGD and colonoscopy on Tuesday *Hypothyroidism - continue home dose Synthroid * Rt calf pain -US negative for DVT * Cough - Mucinex oredered * Hyperglycemia,reports no hx of DM -will check Hgb Alc *f/e/n - regular diet - replete electrolytes prn - K- WNL ppx - oob - defer ac secondary to anemia Disp: pt require obsv admission Visit type - Emergency Visit Emergency Visit: Yes ED Registration Date: 01/20/18 Care time: The patient presented to the Emergency Department on the above date and was hospitalized for further evaluation of their emergent condition. - New Patient This patient is new to me today: Yes Date on this admission: 01/21/18 - Critical Care Critical Care patient: No
[2018-01-21] MEDS ORDERED: ACETAMINOPHEN 325 MG TABLET (FP) PO PRN (09:03)
[2018-01-21] MEDS: guaiFENesin 600 MG TABLET.ER (FP) PO SCH ×2 (09:19→21:34)
[2018-01-21] MEDS: FERROUS GLUCONATE 324 MG TAB (FP) PO SCH ×2 (11:28→17:04)
--- NOTE | 2018-01-21 12:22 | CONS ---
DATE OF CONSULTATION: 01/20/2018 Asked to evaluate this 72-year-old female with a microcytic anemia and possible occult GI bleeding. Patient is a 72-year-old female with a history of hypothyroidism who was admitted to the hospital with increasing fatigue and some dyspnea on exertion. The patient was seen in the emergency room and noted to have a severe anemia with a hemoglobin of 6.4 and hematocrit of 22.6. Her MCV was 62.1. The patient also was noted to have a BUN of 18, creatinine of 0.6 and a ferritin level of 2.5 (low). Patient was admitted to the hospital and is currently receiving packed red blood cells. She does have a history of significant alcohol use in the past but states she has not had any significant amounts of alcohol for approximately 15 years. She is a rare aspirin user and denies the use of NSAIDs. She has not seen any overall change in her appetite or weight and has not noted any change in her bowel habits. She has not seen any black or tarry stool or bright-red blood per rectum. She denies having prior endoscopy or colonoscopy. She is unaware of any family history of GI illness or malignancy. PHYSICAL EXAMINATION:General: She is a well-developed slightly pale female who has a somewhat altered affect staring off into the hallway rather than focusing directly on the field consultant. She does respond appropriately to questions. Lungs: Clear. Cardiac: Regular rate and rhythm. Abdomen: Soft, flat and without palpable organomegaly. As mentioned she is currently receiving packed red blood cells. The remainder of her laboratory tests include a normal set of electrolytes, liver chemistries and an albumin of 3.3. Her INR is 1.07. Patient with microcytic anemia, low serum ferritin suggestive of an iron deficiency anemia. Patient does not have any specific GI complaints at the present time but most likely has had occult GI bleeding with resultant anemia and iron deficiency. Agree with packed red blood cell transfusions and will suggest both upper endoscopy and colonoscopy prior to discharge for further evaluation. Recommendations based on aforementioned studies. Thank you. HANNAH GARCIA M.D. [id number]
[2018-01-22] MEDS: LEVOTHYROXINE NA 75 MCG TABLET (FP) PO SCH (06:41)
[2018-01-22] MEDS: FERROUS GLUCONATE 324 MG TAB (FP) PO SCH ×3 (08:11→17:13)
[2018-01-22 09:57] LABS: ANION GAP 8 MMOL/L (8-16); BLOOD UREA NITROGEN 14 mg/dl (7-18); CALCIUM 8.9 mg/dl (8.4-10.2); CHLORIDE 105 mmol/L (98-107); CO2 23 mmol/L (22-28); CREATININE 0.6 mg/dl (0.6-1.3); GLUCOSE,RANDOM 82 mg/dl (74-106); POTASSIUM 4.1 mmol/L (3.5-5.1); SODIUM 136 mmol/L (136-145)
[2018-01-22 09:58] LABS: BASO % 0.7 % (0-2.0); EOS % 6.3 % (0-4.5); HEMOGLOBIN 10.1 GM/dl (10.7-15.3); LYMPH % 19.8 % (8-40); MCH 21.2 pg (25.7-33.7); MCHC 30.5 g/dl (32.0-36.0); MEAN CELL VOLUME 69.7 fl (80-96); MEAN PLT VOLUME 7.9 fl (7.5-11.1); MONO % 8.5 % (3.8-10.2); NEUT % 64.7 % (42.8-82.8); PLATELET COUNT 310 K/MM3 (134-434); RBC 4.73 M/mm3 (3.60-5.2); RDW 23.2 % (11.6-15.6); WHITE BLOOD COUNT 4.4 K/mm3 (4.0-10.8)
[2018-01-22] MEDS ORDERED: IRON SUCROSE INJECTION 200 MG in SODIUM CHLORIDE 90 ML IVPB ONE (10:19)
[2018-01-22] MEDS: guaiFENesin 600 MG TABLET.ER (FP) PO SCH ×2 (10:32→21:19)
[2018-01-22] MEDS ORDERED: PEG/ELECTROLYTES (NULYTELY) 4,000 ML BOTTLE PO ONE (12:00)
--- NOTE | 2018-01-22 14:00 | PN ---
Physical Exam: SUBJECTIVE: Patient seen and examined. Has no acute complaints. Mild dizziness this AM, resolved now. OBJECTIVE: Vital Signs Period Temp Pulse Resp BP Sys/Barriga Pulse Ox Last 24 Hr 97.7 F-98.1 F 59-71 17-18 122-131/50-63 97-100 PE Neuro: alert, awake, cn 2-12intact Pulm: basilar crackles + wet cough CV: S1 s2 rrr no mrg Abd: s nt nd + bs Ext: warm, no le edema Laboratory Results - last 24 hr 01/22/18 01/22/18 07:00 07:00 WBC 4.4 RBC 4.73 Hgb 10.1 L Hct 33.0 MCV 69.7 L MCH 21.2 L MCHC 30.5 L RDW 23.2 H Plt Count 310 MPV 7.9 Absolute Neuts (auto) 2.8 Neutrophils % 64.7 Lymphocytes % 19.8 Monocytes % 8.5 Eosinophils % 6.3 H Basophils % 0.7 Sodium 136 Potassium 4.1 Chloride 105 Carbon Dioxide 23 Anion Gap 8 BUN 14 Creatinine 0.6 Creat Clearance w eGFR > 60 Random Glucose 82 D Calcium 8.9 Active Medications Generic Name Dose Route Start Last Admin Trade Name Freq PRN Reason Stop Dose Admin Acetaminophen 650 mg 01/21/18 09:03 01/21/18 15:59 Tylenol - PO 650 mg Q6H PRN Administration pain/fever Ferrous Gluconate 324 mg 01/21/18 12:00 01/22/18 12:15 Fergon - PO 324 mg TIDCM BRITTANY Administration Guaifenesin 600 mg 01/21/18 10:00 01/22/18 10:32 Mucinex - PO 600 mg BID BRITTANY Administration Levothyroxine Sodium 75 mcg 01/21/18 07:00 01/22/18 06:41 Synthroid - PO 75 mcg DAILY@0700 BRITTANY Administration Assessment: 72 year old female with as past medical history of hypothyroidism, osteoporosis and GERD.Admitted with anemia. Plan: 1. Iron deficiency anemia - s/p 2 units of blood transfusion - Hgb improved - Dose x1 dose venofer today - Cont ferrous sulfate - Plan on EGD and colonoscopy on Tuesday 2. Hypothyroidism - continue home dose Synthroid 3. Rt calf pain -US negative for DVT 4. Cough - Cont Mucinex - Trial x1 antihistamine - Reports symptoms x1 month 5. Hyperglycemia - Hgb a1c, stable, no DM Visit type - Emergency Visit Emergency Visit: Yes ED Registration Date: 01/20/18 Care time: The patient presented to the Emergency Department on the above date and was hospitalized for further evaluation of their emergent condition. - New Patient This patient is new to me today: Yes Date on this admission: 01/22/18 - Critical Care Critical Care patient: No - Discharge Referral Referred to [facility] Med P.C.: No
[2018-01-23] MEDS: LEVOTHYROXINE NA 75 MCG TABLET (FP) PO SCH (06:09)
[2018-01-23] MEDS ORDERED: PROPOFOL 20 ML ONE ×2 (07:49)
[2018-01-23 08:18] LABS: HEMATOCRIT 34.2 % (32.4-45.2); HEMOGLOBIN 10.5 GM/dl (10.7-15.3); MCH 21.4 pg (25.7-33.7); MCHC 30.8 g/dl (32.0-36.0); MEAN CELL VOLUME 69.5 fl (80-96); PLATELET COUNT 306 K/MM3 (134-434); RBC 4.92 M/mm3 (3.60-5.2); RDW 24.1 % (11.6-15.6); WHITE BLOOD COUNT 7.7 K/mm3 (4.0-10.8)
[2018-01-23 08:39] LABS: ANION GAP 10 MMOL/L (8-16); BLOOD UREA NITROGEN 10 mg/dl (7-18); CALCIUM 9.2 mg/dl (8.4-10.2); CHLORIDE 98 mmol/L (98-107); CO2 24 mmol/L (22-28); CREATININE 0.7 mg/dl (0.6-1.3); GLUCOSE,RANDOM 100 mg/dl (74-106); POTASSIUM 4.3 mmol/L (3.5-5.1); SODIUM 132 mmol/L (136-145)
[2018-01-23] MEDS: guaiFENesin 600 MG TABLET.ER (FP) PO SCH (09:11)
[2018-01-23] MEDS: FERROUS GLUCONATE 324 MG TAB (FP) PO SCH ×2 (09:12→14:10)
--- NOTE | 2018-01-23 12:09 | DS ---
Physical Exam: SUBJECTIVE: Patient seen and examined, reports feeling well OBJECTIVE: Vital Signs Period Temp Pulse Resp BP Sys/Barriga Pulse Ox Last 24 Hr 97.5 F-98.5 F 77-88 18-18 117-144/56-67 95-98 PHYSICAL EXAM GENERAL: The patient is awake, alert, and fully oriented, in no acute distress. HEAD: Normal with no signs of trauma. EYES: PERRL, extraocular movements intact, sclera anicteric, conjunctiva clear. ENT: Ears normal, nares patent, oropharynx clear without exudates, moist mucous membranes. NECK: Trachea midline, full range of motion, supple. LUNGS: Breath sounds equal, clear to auscultation bilaterally, no wheezes, no crackles, no accessory muscle use. HEART: Regular rate and rhythm, S1, S2 without murmur, rub or gallop. ABDOMEN: Soft, nontender, nondistended, normoactive bowel sounds, no guarding, no rebound, no hepatosplenomegaly, no masses. EXTREMITIES: 2+ pulses, warm, well-perfused, no edema. NEUROLOGICAL: Cranial nerves II through XII grossly intact. Normal speech, gait not observed. PSYCH: Normal mood, normal affect. SKIN: Warm, dry, normal turgor, no rashes or lesions noted. LABS Laboratory Results - last 24 hr 01/20/18 01/23/18 01/23/18 01:49 07:30 07:30 WBC 7.7 RBC 4.92 Hgb 10.5 L Hct 34.2 MCV 69.5 L MCH 21.4 L MCHC 30.8 L RDW 24.1 H Plt Count 306 MPV 8.0 Sodium 132 L Potassium 4.3 Chloride 98 Carbon Dioxide 24 Anion Gap 10 BUN 10 Creatinine 0.7 Creat Clearance w eGFR > 60 Random Glucose 100 D Calcium 9.2 Blood Type B POSITIVE Crossmatch See Detail HOSPITAL COURSE: Date of Admission:01/20/18 Date of Discharge: 01/23/18 Minutes to complete discharge: 45 Discharge Summary Reason For Visit: Abnormal Labs (HGB) Current Active Problems Anemia (Acute) Condition: Guarded - Instructions Diet, Activity, Other Instructions: You were admitted to the hospital for symptomatic anemia and you were given 2 units of blood during your admission Please follow-up with the industrial order clerk within 1 week Resume regular diet Continue all medications as prescribed Return to the emergency department immediately with ANY new, persistent or worsening symptoms. You MUST call and follow up with your doctor tomorrow. Please make sure your doctor reviews the results of your hospital stay. Referrals: Elpidio Molina MD [Staff Physician] - 1 Week Jorge Mcbride MD [Staff Physician] - 1 Week Disposition: VNS/HOME HEALTH CARE - Home Medications Comprehensive Discharge Medication List: Ambulatory Orders Levothyroxine [Synthroid -] 75 mcg PO DAILY 07/05/14 Meclizine HCl [Antivert -] 12.5 tab PO PRN MDD 3 01/20/18 - Discharge Referral Referred to [facility] Med P.C.: No
--- NOTE | 2018-01-23 13:10 | PN ---
Progress Note (short form) - Note Progress Note: Upper endoscopy and colonoscopy performed; reports in chart. No obvious bleeding source identified. Stool guaiac neg x 2 Uncertain if anemia from a GI source or other etiology ?dietary, hematologic. Currently stable and would advance diet and follow as outpatient. If evidence of GI blood loss, will arrange for capsule study of small bowel.
[2018-01-23 14:11] VITALS: BP 123/60; PULSE 62; TEMP 97.6
--- NOTE | 2018-01-25 15:57 | PATH ---
Surgical Pathology Report Patient Name: MELINA GAFFNEY Med. Rec. #: [id number] /Age/Gender: 1945 (Age: 72) / F Account: [id number] Location: [facility] Taken: 01/23/2018 Received: 01/23/2018 Reported: 01/25/2018 Physicians: Maryjane Pedraza ACNP Specimen(s) Received A: BX DUODENUM B: BX ANTRUM Clinical History Anemia Postoperative diagnosis: Iron deficiency anemia Final Diagnosis A. DUODENUM, BIOPSY: DUODENUM MUCOSA WITH MILD ACTIVE CHRONIC DUODENITIS. NO HISTOLOGIC EVIDENCE OF CELIAC DISEASE. B. ANTRUM, BIOPSY: GASTRIC MUCOSA WITH ACTIVE CHRONIC GASTRITIS. IMMUNOSTAIN IS NEGATIVE FOR H. PYLORI ORGANISMS. NEGATIVE FOR INTESTINAL METAPLASIA. Electronically Signed Randy Mackey M.D. Gross Description A. Received in formalin, labeled "duodenum" is a abreu, irregular portion of soft tissue measuring 0.4 cm. in greatest dimension. The specimen is submitted in toto in one cassette. B. Received in formalin, labeled "antrum" is a abreu, irregular portion of soft tissue measuring 0.3 cm. in greatest dimension. The specimen is submitted in toto in one cassette. 01/24/2018 saudi01/24/2018
== END 2018-01-23 14:50 | disposition home health service (06) ==
LOC: FER 23:30 → FM/S 01-20 02:43 → UNDOADMOB 01-20 02:43 → INTOOBSV 01-20 02:43 → UNDOADMIN 01-20 02:59 → FM/S 01-20 02:59
PROVIDERS: ADMIT Internal Medicine; ATTEND Nurse Practitioner Family
PROC: 3E033GC Introduction of Other Therapeutic Substance into Peripheral Vein, Percutaneous Approach (ICD-10-PCS; 2018-01-20)
PROC: 30233N1 Transfusion of Nonautologous Red Blood Cells into Peripheral Vein, Percutaneous Approach (ICD-10-PCS; 2018-01-20)
PROC: 3E033GC Introduction of Other Therapeutic Substance into Peripheral Vein, Percutaneous Approach (ICD-10-PCS; 2018-01-20)
PROC: 0DB98ZX Excision of Duodenum, Via Natural or Artificial Opening Endoscopic, Diagnostic (ICD-10-PCS; 2018-01-23)
PROC: 0DB68ZX Excision of Stomach, Via Natural or Artificial Opening Endoscopic, Diagnostic (ICD-10-PCS; principal; 2018-01-23 12:44)
DX: D50.9 Iron deficiency anemia, unspecified (principal); E03.9 Hypothyroidism, unspecified; R05 Cough; M79.661 Pain in right lower leg; R73.9 Hyperglycemia, unspecified; K29.80 Duodenitis without bleeding; K29.50 Unspecified chronic gastritis without bleeding
CPT/HCPCS: 36415; 36430; 71045-TC-FY; 71046-TC-FY; 80048; 80053; 81003; 82272; 82550; 82728; 83036; 83540; 83550; 84484; 85025; 85027; 85610; 85730; 86850; 86900; 86901; 86922; 88305-TC; 93005; 93971-TC; 96365; 99282-25; G0378; J1756; P9038; P9058

== ENCOUNTER 2018-07-06 18:13 | Emergency (ER) | payer OTHER ==
[2018-07-06 18:16] VITALS: BMI 21.9
[2018-07-06 18:45] VITALS: BP 148/68; PULSE 65; TEMP 97.6
[2018-07-06] MEDS ORDERED: CEPHALEXIN MONOHYDRATE 500 MG CAPSULE (UD) PO ONE (19:40)
[2018-07-06] MEDS ORDERED: CEPHALEXIN MONOHYDRATE 500 MG CAPSULE (UD) ONE (19:43)
--- NOTE | 2018-07-06 19:48 | PDOC ---
History of Present Illness - General History Source: Patient, Family Exam Limitations: No Limitations - History of Present Illness Initial Comments: 07/06/18 20:00 The patient is a 73 year old female presenting with her family, with a significant past medical history of hypothyroidism, who presents to the ED complaining of hematuria. She reports that she experienced a hematuria episode today and decided to come to the ED. Her family notes that the patient at times acts without calling them before hand. They note that the patient has an appointment to see her PCP tomorrow. On presentation the patient denies any kind of pain and notes that she urinated clean in the ED. Patient notes that she feels better to go home. The patient denies chest pain, shortness of breath, headache and dizziness. Denies fever, chills, nausea, vomiting, diarrhea or constipation. Denies dysuria , frequency, urgency. Allergies: None Past surgical history: None reported Social History: No alcohol, tobacco or drug use reported <Cecil Deras - Last Filed: 07/06/18 19:59> <Lurdes Mariano - Last Filed: 07/06/18 22:49> - General Chief Complaint: Urinary Problem Stated Complaint: BLOOD IN URINE Time Seen by Provider: 07/06/18 19:34 Past History <Cecil Deras - Last Filed: 07/06/18 19:59> - Past Medical History Anemia: No Asthma: No Cancer: No Cardiac Disorders: No CVA: No COPD: No CHF: No Dementia: No Diabetes: No GI Disorders: No Disorders: No HTN: No Hypercholesterolemia: No Liver Disease: No Seizures: No Thyroid Disease: Yes (HYPOTHYROID) - Surgical History Abdominal Surgery: No Appendectomy: No Cardiac Surgery: No Cholecystectomy: No Lung Surgery: No Neurologic Surgery: No Orthopedic Surgery: No - Suicide/Smoking/Psychosocial Hx Smoking Status: No Smoking History: Former smoker Have you smoked in the past 12 months: No Number of Cigarettes Smoked Daily: 20 If you are a former smoker, when did you quit?: 2007 Information on smoking cessation initiated: No Hx Alcohol Use: No Drug/Substance Use Hx: No Substance Use Type: None Hx Substance Use Treatment: No <Lurdes Mariano - Last Filed: 07/06/18 22:49> - Past Medical History Allergies/Adverse Reactions: Allergies Allergy/AdvReac Type Severity Reaction Status Date / Time No Known Allergies Allergy Verified 07/06/18 18:14 Home Medications: Ambulatory Orders Levothyroxine [Synthroid -] 75 mcg PO DAILY 07/05/14 Cephalexin Monohydrate [Keflex -] 500 mg PO Q8H #21 capsule 07/06/18 Review of Systems - Review of Systems Able to Perform ROS?: Yes Comments:: 07/06/18 19:59 GENERAL/CONSTITUTIONAL: No fever or chills. No weakness. HEAD, EYES, EARS, NOSE AND THROAT: No change in vision. No ear pain or discharge. No sore throat. GASTROINTESTINAL: No nausea, vomiting, diarrhea or constipation. GENITOURINARY: (+) Hematuria. No dysuria, frequency CARDIOVASCULAR: No chest pain or shortness of breath. RESPIRATORY: No cough, wheezing, or hemoptysis. MUSCULOSKELETAL: No joint or muscle swelling or pain. No neck or back pain. SKIN: No rash NEUROLOGIC: No headache, vertigo, loss of consciousness, or change in strength/ sensation. ENDOCRINE: No increased thirst. No abnormal weight change. HEMATOLOGIC/LYMPHATIC: No anemia, easy bleeding, or history of blood clots. ALLERGIC/IMMUNOLOGIC: No hives or skin allergy. <Cecil Deras - Last Filed: 07/06/18 19:59> *Physical Exam - Vital Signs Last Vital Signs Temp Pulse Resp BP Pulse Ox 97.6 F 65 18 148/68 100 07/06/18 18:14 07/06/18 18:14 07/06/18 18:14 07/06/18 18:14 07/06/18 18:14 - Physical Exam Comments: 07/06/18 19:59 Constitutional: Awake, alert, oriented. No acute distress. Head: Normocephalic. Atraumatic Eyes: PERRL. EOMI. Conjunctivae are not pale. ENT: Mucous membranes are moist and intact. Posterior pharynx without exudates or erythema. Uvula midline. Neck: Supple. Full ROM. No lymphadenopathy. Cardiovascular: Regular rate. Regular rhythm. S1, S2 regular. Distal pulses are 2+ and symmetric. Pulmonary/Chest: No evidence of respiratory distress. Clear to auscultation bilaterally No wheezing, rales or rhonchi. Abdominal: Soft and non-distended. There is no tenderness. No rebound, guarding or rigidity. No organomegaly. No palpable masses. Good bowel sounds. Back: No CVA tenderness. Musculoskeletal: No edema. No cyanosis. No clubbing. Full range of motion in all extremities. Nocalf tenderness. Radial/pedal pulses are intact and 2+ bilaterally Skin: Skin is warm and dry. No petechiae. No purpura. Neurological: Alert and oriented to person, place, and time. Cranial nerves II -XII are grossly intact. Normal speech. Strength is grossly symmetric. No sensory deficits. Psychiatric: Good eye contact. Normal interaction, affect and behavior. <Cecil Deras - Last Filed: 07/06/18 19:59> - Vital Signs Last Vital Signs Temp Pulse Resp BP Pulse Ox 97.6 F 65 18 148/68 100 07/06/18 18:14 07/06/18 18:14 07/06/18 18:14 07/06/18 18:14 07/06/18 18:14 <Lurdes Mariano - Last Filed: 07/06/18 22:49> ED Treatment Course - ADDITIONAL ORDERS Additional order review: Laboratory Results 07/06/18 18:24 Urine Color Yellow Urine Appearance Clear Urine pH 6.0 Urine Protein Negative Urine Glucose (UA) Negative Urine Ketones Negative Urine Blood 3+ H Urine Nitrite Negative Urine Bilirubin Negative Urine Urobilinogen 0.2 Ur Leukocyte Esterase 1+ Urine WBC (Auto) 15-25 Urine RBC (Auto) 35-55 U Epithel Cells (Auto) Few Urine Bacteria (Auto) 1+ - Medications Given in the ED: ED Medications Discontinued Medications Generic Name Dose Route Start Last Admin Trade Name Baldoq PRN Reason Stop Dose Admin Cephalexin HCl 500 mg 07/06/18 19:40 07/06/18 19:48 Keflex - PO 07/06/18 19:41 500 mg ONCE ONE Administration <Cecil Deras - Last Filed: 07/06/18 19:59> - ADDITIONAL ORDERS Additional order review: Laboratory Results 07/06/18 18:24 Urine Color Yellow Urine Appearance Clear Urine pH 6.0 Urine Protein Negative Urine Glucose (UA) Negative Urine Ketones Negative Urine Blood 3+ H Urine Nitrite Negative Urine Bilirubin Negative Urine Urobilinogen 0.2 Ur Leukocyte Esterase 1+ Urine WBC (Auto) 15-25 Urine RBC (Auto) 35-55 U Epithel Cells (Auto) Few Urine Bacteria (Auto) 1+ <Lurdes Mariano - Last Filed: 07/06/18 22:49> Medical Decision Making - Medical Decision Making 07/06/18 22:48 Pt has no flank pain and no suprapubic pain. She has hematuria and some frequency. SHe has WBC and RBC in her urine and she will be treated empirically for a UTI; however, she was advised to follow with as an outpatient for sono eval of bladder and potential bladder neoplasm. <Lurdes Mariano - Last Filed: 07/06/18 22:49> *DC/Admit/Observation/Transfer - Attestations Scribe Attestion: 07/06/18 19:59 Documentation prepared by Cecil Deras, acting as medical lab specialist for Lurdes Maraino MD <Cecil Deras - Last Filed: 07/06/18 19:59> - Discharge Dispostion Decision to Admit order: No <Lurdes Mariano - Last Filed: 07/06/18 22:49> Diagnosis at time of Disposition: UTI (urinary tract infection), Hematuria - Discharge Dispostion Disposition: HOME Condition at time of disposition: Stable - Prescriptions Prescriptions: Cephalexin Monohydrate [Keflex -] 500 mg PO Q8H #21 capsule - Referrals Referrals: Elpidio Molina MD [Primary Care Provider] - Derek Douglas MD [Staff Physician] - - Patient Instructions Printed Discharge Instructions: DI for Hematuria - Post Discharge Activity
== END 2018-07-06 19:50 | disposition home or self-care (01) ==
LOC: FER 18:13
DX: R31.9 Hematuria, unspecified (principal); E03.9 Hypothyroidism, unspecified; Z87.891 Personal history of nicotine dependence
CPT/HCPCS: 81003; 81015; 87077; 87086; 99282-25

== ENCOUNTER 2019-02-21 12:23 | Emergency (ER) | payer OTHER ==
[2019-02-21 12:37] VITALS: TEMP 97.5; BMI 21.0
--- NOTE | 2019-02-21 13:18 | PDOC ---
History of Present Illness - General Chief Complaint: Pain, Acute Stated Complaint: rib pain Time Seen by Provider: 02/21/19 12:26 - History of Present Illness Initial Comments: 02/21/19 13:18 73-year-old female with a history of hypothyroidism is brought in by EMS for bilateral rib pain. [facility], and staff activated EMS given her complaint of rib pain. The patient reports she has had rib pain for months. She denies any trauma. She currently denies rib pain, but expresses concern that her ribs seem to be protruding more than usual due to her weight loss. Patient's daughter at the bedside reports that the patient does not eat well and has lost some weight over the last few years due to her poor diet. She also reports that the patient walks excessively around the neighborhood and frequents the supermarket a few times per day. She has been doing this for years. Her daughter is concerned that she has dementia, but the patient has not been formally diagnosed. She states the patient recently forgot a neighbors name and for her birthday which was unlike her. The patient lives with her son, and her daughter checks in frequently on her. Patient's daughter reports that she has an appointment with her primary care doctor tomorrow at [phone] (Dr. Molina). The patient's daughter reports that the patient is safe at home, but she is concerned about her poor diet and excessive walking. The patient denies any recent fevers, chills, chest pain, shortness of breath, headache, focal weakness or numbness, abdominal pain, nausea, vomiting, diarrhea , urinary symptoms or lower extremity edema. Past History - Past Medical History Allergies/Adverse Reactions: Allergies Allergy/AdvReac Type Severity Reaction Status Date / Time No Known Allergies Allergy Verified 02/21/19 12:23 Home Medications: Ambulatory Orders Levothyroxine [Synthroid -] 75 mcg PO DAILY 07/05/14 Anemia: No Asthma: No Cancer: No Cardiac Disorders: No CVA: No COPD: No CHF: No Dementia: No Diabetes: No GI Disorders: No Disorders: No HTN: No Hypercholesterolemia: No Liver Disease: No Seizures: No Thyroid Disease: Yes (HYPOTHYROID) - Surgical History Abdominal Surgery: No Appendectomy: No Cardiac Surgery: No Cholecystectomy: No Lung Surgery: No Neurologic Surgery: No Orthopedic Surgery: No - Psycho Social/Smoking Cessation Hx Smoking Status: No Smoking History: Former smoker Have you smoked in the past 12 months: No Number of Cigarettes Smoked Daily: 20 If you are a former smoker, when did you quit?: 2007 Information on smoking cessation initiated: No Hx Alcohol Use: No Drug/Substance Use Hx: No Substance Use Type: None Hx Substance Use Treatment: No Review of Systems - Review of Systems Comments:: 02/21/19 13:27 GENERAL/CONSTITUTIONAL: No fever or chills. No weakness. HEAD, EYES, EARS, NOSE AND THROAT: No change in vision. No ear pain or discharge. No sore throat. GASTROINTESTINAL: No nausea, vomiting, diarrhea or constipation. GENITOURINARY: No dysuria, frequency, or change in urination. CARDIOVASCULAR: No chest pain or shortness of breath. RESPIRATORY: No cough, wheezing, or hemoptysis. MUSCULOSKELETAL: No joint or muscle swelling or pain. No neck or back pain. SKIN: No rash NEUROLOGIC: No headache, vertigo, loss of consciousness, or change in strength/ sensation. ENDOCRINE: No increased thirst. No abnormal weight change. HEMATOLOGIC/LYMPHATIC: No anemia, easy bleeding, or history of blood clots. ALLERGIC/IMMUNOLOGIC: No hives or skin allergy. *Physical Exam - Vital Signs Last Vital Signs Temp Pulse Resp BP Pulse Ox 97.5 F L 62 17 149/69 100 02/21/19 12:23 02/21/19 12:23 02/21/19 12:23 02/21/19 12:23 02/21/19 12:23 - Physical Exam Comments: 02/21/19 13:27 GENERAL: Awake, alert, and fully oriented, in no acute distress. Knows the president. HEAD: No signs of trauma EYES: PERRLA, EOMI, sclera anicteric, conjunctiva clear ENT: Auricles normal inspection, hearing grossly normal, nares patent, oropharynx clear without exudates. Moist mucosa NECK: Normal ROM, supple, no lymphadenopathy, JVD, or masses LUNGS: Breath sounds equal, clear to auscultation bilaterally. No wheezes, and no crackles HEART: Regular rate and rhythm, normal S1 and S2, no murmurs, rubs or gallops. No rib ttp ABDOMEN: Soft, nontender, normoactive bowel sounds. No guarding, no rebound. No masses EXTREMITIES: Normal range of motion, no edema. No cords, erythema, or tenderness NEUROLOGICAL: Normal speech, cranial nerves intact, negative pronator drift, 5/ 5 strength in all 4 extremities, normal sensation to light touch in all 4 extremities, normal cerebellar exam, normal gait, normal tone SKIN: Warm, Dry, normal turgor, no rashes or lesions noted. Heart Score/ECG Review #1 02/21/19 13:28 Twelve-lead EKG was performed and reviewed by me. Sinus bradycardia, rate 58. Left axis deviation. No ST elevations. Biphasic T waves in V3 to V6 as well as T wave flattening in 2, 3 and aVF. When compared to EKG from January 20, 2018, no significant change. ED Treatment Course - LABORATORY CBC & Chemistry Diagram: 02/21/19 13:09 02/21/19 13:09 - RADIOLOGY Radiology Studies Ordered: Category Date Time Status HEAD CT WITHOUT CONTRAST [CT] Stat CT Scan 02/21/19 13:08 Ordered CHEST PA & LAT [RAD] Stat Radiology 02/21/19 13:08 Ordered Medical Decision Making - Medical Decision Making 02/21/19 13:[id number] female with a history of hypothyroidism, anemia presents to the emergency department with complaints of ribs protruding due to weight loss. Collateral by daughter suggests years of poor diet as well as frequent and at times excessive walking around her home. Patient's daughter also reports that she is intermittently confused and forgot her birthday recently which was unlike her. Vitals are within normal limits Exam as noted. We will plan work-up for reversible causes of altered mental status including metabolic disarray, anemia, ischemia, infection. More likely is that patient has dementia given decline over multiple years, per patient's daughter. Given her excessive walking and poor nutrition, will also consult the social work assistant to evaluate the patient for safe disposition. 02/21/19 14:54 Medical work-up including CT head, urinalysis, XR unremarkable, TSH is pending. Patient has been evaluated by social work and cleared She was offered Meals on Wheels, however she prefers to go to the community center daily and thus may not be home when they arrive. She was advised to apply for Medicaid in case she would like home health aide for assistance at home in the future. Daughter is aware of the plan, is satisfied with provided resources and would like to take the patient home. Patient is clinically stable for discharge home, has an appointment with the primary care doctor tomorrow. Return precautions discussed. I discussed the physical exam findings, ancillary test results and final diagnoses with the patient. I answered all of the patient's questions. The patient was satisfied with the care received and felt comfortable with the discharge plan and treatment plan. The patient will call their primary care physician within 24 hours to arrange follow-up and will return to the Emergency Department with any new, persistent or worsening symptoms. 02/22/19 15:30 TSH elevated to 31, however, pt with no clinical evidence of hypothyroidism. Her HR, temp, BP wnl. Likely subclinical hypothyroidism. Discharge - Discharge Information Problems reviewed: Yes Clinical Impression/Diagnosis: Rib pain Condition: Stable Disposition: HOME - Admission No - Follow up/Referral Referrals: Elpidio Molina MD [Primary Care Provider] - - Patient Discharge Instructions Additional Instructions: Follow up with your primary care doctor tomorrow as scheduled Return to the emergency department if you have any new, worsening, or concerning symptoms. - Post Discharge Activity
[2019-02-21 13:34] LABS: BASO % 0.9 % (0-2.0); EOS % 2.1 % (0-4.5); HEMOGLOBIN 14.8 GM/dl (10.7-15.3); LYMPH % 14.3 % (8-40); MCH 30.3 pg (25.7-33.7); MCHC 32.8 g/dl (32.0-36.0); MEAN CELL VOLUME 92.2 fl (80-96); MONO % 4.5 % (3.8-10.2); NEUT % 78.2 % (42.8-82.8); PLATELET COUNT 274 K/MM3 (134-434); RBC 4.89 M/mm3 (3.60-5.2); RDW 13.1 % (11.6-15.6); WHITE BLOOD COUNT 6.3 K/mm3 (4.0-10.8)
[2019-02-21 13:44] LABS: BILIRUBIN,TOTAL 0.6 mg/dl (0.2-1); CALCIUM 8.9 mg/dl (8.5-10); CREATININE 0.5 mg/dl (0.55-1.3); POTASSIUM 4.2 mmol/L (3.5-5.1); TOT PROT 7.1 g/dl (6.4-8.2)
[2019-02-21 13:50] LABS: EPITHELIAL CELLS FEW /hpf
[2019-02-21 14:44] VITALS: BP 135/72; PULSE 66
--- NOTE | 2019-02-22 12:41 | EKG ---
Test Reason : Blood Pressure : / mmHG Vent. Rate : 058 BPM Atrial Rate : 058 BPM P-R Int : 128 ms QRS Dur : 088 ms QT Int : 456 ms P-R-T Axes : 067 -78 027 degrees QTc Int : 447 ms SINUS BRADYCARDIA LEFT AXIS DEVIATION NONSPECIFIC T WAVE ABNORMALITY ABNORMAL ECG WHEN COMPARED WITH ECG OF 20-JAN-2018 03:14, NO SIGNIFICANT CHANGE WAS FOUND Confirmed by JULIAN SORENSON, JESSICA ([id number]) on 02/22/2019 12:41:34 PM Referred By: ASHLI CAI Confirmed By:JESSICA JORDAN MD
== END 2019-02-21 14:59 | disposition home or self-care (01) ==
LOC: FER 12:23
DX: R07.81 Pleurodynia (principal); E03.9 Hypothyroidism, unspecified; D64.9 Anemia, unspecified; Z87.891 Personal history of nicotine dependence
CPT/HCPCS: 36415; 70450-TC; 71046-TC-FY; 80053; 81003; 81015; 82550; 84443; 84484; 85025; 87086; 93005; 99283-25

== ENCOUNTER 2019-10-08 14:35 | Inpatient (IN) | payer OTHER ==
[2019-10-08] MEDS ORDERED: ACETAMINOPHEN 500 MG TABLET (FP) PO ONE (14:56)
[2019-10-08 15:33] LABS: BASO % 0.5 % (0-2.0); EOS % 2.4 % (0-4.5); HEMOGLOBIN 8.2 GM/dl (10.7-15.3); LYMPH % 13.1 % (8-40); MCHC 30.4 g/dl (32.0-36.0); MEAN CELL VOLUME 65.2 fl (80-96); MEAN PLT VOLUME 7.4 fl (7.5-11.1); MONO % 6.4 % (3.8-10.2); NEUT % 77.6 % (42.8-82.8); PLATELET COUNT 321 K/MM3 (134-434); RBC 4.14 M/mm3 (3.60-5.2); RDW 22.9 % (11.6-15.6); WHITE BLOOD COUNT 6.5 K/mm3 (4.0-10.8)
[2019-10-08 15:34] LABS: MCH 19.8 pg (25.7-33.7)
[2019-10-08 15:35] LABS: ADD RBC MORPHOLOGY YES
[2019-10-08 15:36] LABS: ALBUMIN 3.4 g/dl (3.4-5.0); BILIRUBIN,TOTAL 0.8 mg/dl (0.2-1); CALCIUM 8.3 mg/dl (8.5-10); CREATININE 0.6 mg/dl (0.55-1.3); POTASSIUM 4.2 mmol/L (3.5-5.1); TOT PROT 6.4 g/dl (6.4-8.2)
[2019-10-08 15:49] LABS: ACTIVATED PTT 24.5 SECONDS (25.2-36.5)
[2019-10-08 15:53] LABS: INR 1.2 (0.82-1.09); PROTHROMBIN TIME (PATIENT) 13.4 SEC (10.2-13.0)
--- NOTE | 2019-10-08 15:59 | PDOC ---
Documentation entered by Justen Henriquez SCRIBE, acting as scribe for Mercedes Le DO. Mercedes Le DO: This documentation has been prepared by the Florence cardona Angel, SCRIBE, under my direction and personally reviewed by me in its entirety. I confirm that the documentation accurately reflects all work, treatment, procedures, and medical decision making performed by me. History of Present Illness - General Chief Complaint: Pain, Acute Stated Complaint: right leg swelling/pain Time Seen by Provider: 10/08/19 14:39 History Source: Patient, Family (Son) Exam Limitations: No Limitations - History of Present Illness Initial Comments: 10/08/19 15:08 The patient is a 74 year old female with a significant past medical history of dementia, hypothyroidism, osteoporosis, GERD, anemia, chronic leg pain and recent appendix removal in August who presents to the ED with leg swelling/pain from the knee down for the past couple of months. The patient is c/o of right leg edema/pain but the left leg appears much worse. The patients son states when he asks the patient to rate the pain on a scale of 1 to 10 it is always a 10 out of 10 and is constant everyday. He states he is unsure of what medications she is on and if she is compliant since he does not live with her, his brother does. He goes on to say she is always leaving her apartment and has to walk up and down 5 flights of stairs. He states sometimes when she is outside on her own she has no idea where she is and will scream hysterically and other times she is fine. The patients PCP believes she had blood clots that dissolve since a recent ultrasound showed no clots. The patient denies chest pain, abdominal pain, fever/chills or cough. 10/08/19 16:00 Past History - Medical History Allergies/Adverse Reactions: Allergies Allergy/AdvReac Type Severity Reaction Status Date / Time No Known Allergies Allergy Verified 10/08/19 14:36 Home Medications: Ambulatory Orders Docusate Sodium [Colace] 100 mg PO DAILY #30 capsule 09/11/19 Ferrous Sulfate 325 mg PO BID #60 tablet 09/11/19 Levothyroxine [Synthroid -] 50 mcg PO DAILY #30 tablet 09/11/19 Metoprolol Succinate 25 mg PO DAILY #30 tab.er.24h 09/11/19 Pantoprazole Sodium [Protonix -] 40 mg PO DAILY #30 tablet.ec 09/11/19 Anemia: No Asthma: No Cancer: No Cardiac Disorders: No CVA: No COPD: No CHF: No Dementia: No Diabetes: No GI Disorders: Yes (GERD) Disorders: No HTN: No Hypercholesterolemia: No Liver Disease: No Seizures: No Thyroid Disease: Yes (HYPOTHYROID) - Surgical History Abdominal Surgery: No Appendectomy: No Cardiac Surgery: No Cholecystectomy: No Lung Surgery: No Neurologic Surgery: No Orthopedic Surgery: No - Immunization History Td Vaccination: Yes TDAP Vaccination: Yes Immunization Up to Date: Yes - Psycho-Social/Smoking History Smoking Status: No Smoking History: Never smoked Have you smoked in the past 12 months: No Number of Cigarettes Smoked Daily: 20 If you are a former smoker, when did you quit?: 2007 Review of Systems - Review of Systems Able to Perform ROS?: Yes Comments:: 10/08/19 15:15 GENERAL/CONSTITUTIONAL: No fever or chills. No weakness. HEENT: No change in vision. No ear pain or discharge. No sore throat. GASTROINTESTINAL: No nausea, vomiting, diarrhea or constipation. GENITOURINARY: No dysuria, frequency, or change in urination. CARDIOVASCULAR: No chest pain or shortness of breath. RESPIRATORY: No cough, wheezing, or hemoptysis. MUSCULOSKELETAL: +Bilateral leg edema/pain. No neck or back pain. SKIN: No rash NEUROLOGIC: No headache, vertigo, loss of consciousness, or change in strength/sensation. ENDOCRINE: No increased thirst. No abnormal weight change. HEMATOLOGIC/LYMPHATIC: No anemia, easy bleeding, or history of blood clots. ALLERGIC/IMMUNOLOGIC: No hives or skin allergy. *Physical Exam - Vital Signs 10/08/19 15:36 Selected Entries 10/08/19 14:41 Temperature 98.3 F Pulse Rate 75 Respiratory 18 Rate Blood Pressure 125/63 Blood Pressure 83 Mean O2 Sat by Pulse 99 Oximetry (%) Weight 47 kg - Physical Exam General Appearance: Yes: Nourished, Appropriately Dressed, Other (demented) HEENT: positive: EOMI, Normal Voice Neck: positive: Supple Respiratory/Chest: positive: Lungs Clear, Normal Breath Sounds. negative: Respiratory Distress Cardiovascular: positive: Regular Rhythm, Regular Rate, S1, S2, Edema Gastrointestinal/Abdominal: positive: Soft. negative: Guarding, Rebound, Tenderness Musculoskeletal: positive: Normal Inspection. negative: CVA Tenderness Extremity: positive: Normal Capillary Refill, Swelling (L>R foot and calf swelling, 2+ pitting edema from L knee to foot, prior surgical healed incisions to toes of L foot, trace pitting edema to R ankle and foot, R calf ttp, no ttp L calf, normal flexion and extension of the feet b/l, sensation intact, brisk cap refill b/l, pulses intact b/l), Calf Tenderness (R calf) Integumentary: positive: Normal Color, Dry, Warm Neurologic: positive: Alert, Normal Mood/Affect, Other (pleasantly demented, aaox2- person and place) Heart Score/ECG Review - ECG Intrepretation Comment:: 10/08/19 15:57 sinus at 69, pac, l axis, t wave inversions v3-v6, abnl ekg ED Treatment Course - LABORATORY CBC & Chemistry Diagram: 10/08/19 15:00 10/08/19 15:00 Medical Decision Making - Medical Decision Making 10/08/19 15:50 a/p: 74yo female with recent dx of afib and recent dx of dementia presents for RLE swelling and pain x months -per the son, Ulisses, pt lives with another brother. Walks up and down 5 flights of stairs and around [place] all day, but c/o 10/10 pain to the RLE -per Ulisses pt has undergone duplex us of the legs that was "neg" for dvt -Ulisses states she has been having [facility] services, but it doesn't seem to be working out and feels she is unsafe to live alone as she walk out of her house and w onders in [place] and then gets nervous and calls out for help. States the dementia seems to be progressing and no longer safe for living at home, requesting eval for leg swelling, calf cramping and placement in a NH -will send labs, ekg, cxr -will obtain duplex ultrasound the LE -today R calf ttp, but LLE worsening pitting edema -will send covid swab for admission and cxr -will monitor and reassess 10/08/19 15:52 case discussed with Jonelle Villalobos from [facility] who accepts pt to service Dr. Molina is PMD 10/08/19 15:54 Ulisses also states pt has been dosing her own meds and states she filled a mec lizine rx a week ago, but now the bottle is empty -pt without symptoms of meclizine overdose, no extreme drowsiness, no sedation, no seizures, no hallucinations, hx of afib, no resp depression 10/08/19 16:38 cxr unchanged from prior mildly elevated bnp trop pending prelim vasc ultrasound neg for dvt poss light volume overload, but no sob 10/08/19 16:39 trop neg Discharge - Discharge Information Problems reviewed: Yes Clinical Impression/Diagnosis: Edema leg, Right leg swelling, Progressive dementia with uncertain etiology Condition: Guarded - Admission Yes - Follow up/Referral Referrals: Elpidio Molina MD [Primary Care Provider] - - Patient Discharge Instructions - Post Discharge Activity
[2019-10-08 16:14] LABS: N-TERMINAL BNP 1794.1 pg/ml (5-450)
[2019-10-08] MEDS ORDERED: ACETAMINOPHEN 500 MG TABLET (FP) ONE (16:25)
--- NOTE | 2019-10-08 16:37 | HP ---
CHIEF COMPLAINT: Lower extremity pain PCP: Dr. Molina HISTORY OF PRESENT ILLNESS: 74 year-old female with a PMH significant for atrial fibrillatrion not on anti- coagulation, iron-deficiency anemia, hypothyroidism, gastric ulcers, lung mass, and dementia. Recent hospitalization 09/01-09/10 at [facility] for newly diagnosed atrial fibrillation and, during same visit, underwent lap appendectomy. Patient brought to ED by son for her complaints of lower extremity pain. Son also states patient suffers from dementia. She wanders the streets every day, becomes agitated sometimes, and falls. He gets calls from local residents. Patient also has no supervision with respect to her meds, he recently discovered she had taken 30 days of meclizine over a 7 day period. Patient lives with another son who does not provide any support or supervision. Patient is supposed to undergo evaluation for dementia with a neurologist being arranged by PCP. ER course was notable for: (1) Troponin neg x 1 (2) BP 125/63, p75 (3) ECG: sinus rhythm @69 with TWI V1, 3,4,5,6 (seen on previous ECG 09/02/19) Recent Travel: No PAST MEDICAL HISTORY: Atrial fibrillation Hypothyroidism Iron-deficiency anemia Gastritic ulcers Lung mass Dementia PAST SURGICAL HISTORY: Lap appendectomy 09/10/19 ([facility]) Social History: lives with son in house Smoking: no Alcohol: no Drugs: no Allergies No Known Allergies Allergy (Verified 10/08/19 14:36) HOME MEDICATIONS: Home Medications Medication Instructions Recorded Docusate Sodium [Colace] 100 mg PO DAILY #30 capsule 09/11/19 Ferrous Sulfate 325 mg PO BID #60 tablet 09/11/19 Levothyroxine [Synthroid -] 50 mcg PO DAILY #30 tablet 09/11/19 Metoprolol Succinate 25 mg PO DAILY #30 tab.er.24h 09/11/19 Pantoprazole Sodium [Protonix -] 40 mg PO DAILY #30 tablet.ec 09/11/19 REVIEW OF SYSTEMS CONSTITUTIONAL: Absent: fever, chills, diaphoresis, generalized weakness, malaise, loss of appetite, weight change HEENT: Absent: rhinorrhea, nasal congestion, throat pain, throat swelling, difficulty swallowing, mouth swelling, ear pain, eye pain, visual changes CARDIOVASCULAR: Absent: chest pain, syncope, palpitations, irregular heart rate, lightheadedness, peripheral edema RESPIRATORY: Absent: cough, shortness of breath, dyspnea with exertion, orthopnea, wheezing, stridor, hemoptysis GASTROINTESTINAL: Absent: abdominal pain, abdominal distension, nausea, vomiting, diarrhea, constipation, melena, hematochezia GENITOURINARY: Absent: dysuria, frequency, urgency, hesitancy, hematuria, flank pain, genital pain MUSCULOSKELETAL: Absent: myalgia, arthralgia, joint swelling, back pain, neck pain SKIN: Absent: rash, itching, pallor HEMATOLOGIC/IMMUNOLOGIC: Absent: easy bleeding, easy bruising, lymphadenopathy, frequent infections ENDOCRINE: Absent: unexplained weight gain, unexplained weight loss, heat intolerance, cold intolerance NEUROLOGIC: +wandering behavior, agitation, frequent falls Absent: headache, focal weakness or paresthesias, dizziness, unsteady gait, seizure, mental status changes, bladder or bowel incontinence PSYCHIATRIC: Absent: anxiety, depression, suicidal or homicidal ideation, hallucinations. PHYSICAL EXAMINATION Vital Signs - 24 hr 10/08/19 14:41 Temperature 98.3 F Pulse Rate 75 Respiratory 18 Rate Blood Pressure 125/63 O2 Sat by Pulse 99 Oximetry (%) GENERAL: Awake, alert, and fully oriented ([facility], 2020) HEAD: Normal with no signs of trauma. EYES: Pupils equal, round and reactive to light, extraocular movements intact, sclera anicteric, conjunctiva clear. No lid lag. LUNGS: Breath sounds equal, clear to auscultation bilaterally. No wheezes, and no crackles. No accessory muscle use. HEART: Regular rate and rhythm, normal S1 and S2 ABDOMEN: Soft, nontender, not distended, normoactive bowel sounds, no guarding, no rebound UPPER EXTREMITIES: 2+ pulses, warm, well-perfused. No cyanosis. No clubbing. No peripheral edema. LOWER EXTREMITIES: 2+ pulses, warm, well-perfused. No calf tenderness. No peripheral edema. NEUROLOGICAL: Cranial nerves II-XII intact. Normal speech.. Laboratory Results - last 24 hr 10/08/19 10/08/19 10/08/19 15:00 15:00 15:00 WBC 6.5 RBC 4.14 Hgb 8.2 L Hct 27.0 L D MCV 65.2 L D MCH 19.8 L MCHC 30.4 L RDW 22.9 H D Plt Count 321 MPV 7.4 L Absolute Neuts (auto) 5.1 Neutrophils % 77.6 Lymphocytes % 13.1 Monocytes % 6.4 Eosinophils % 2.4 Basophils % 0.5 PT with INR 13.4 H INR 1.20 PTT (Actin FS) 24.5 L Sodium 140 Potassium 4.2 Chloride 108 H Carbon Dioxide 24 Anion Gap 8 BUN 24.0 H Creatinine 0.6 Est GFR (CKD-EPI)AfAm 103.34 Est GFR (CKD-EPI)NonAf 89.16 Random Glucose 122 H Lactic Acid Calcium 8.3 L Magnesium 2.0 Total Bilirubin 0.8 AST 26 ALT 17 Alkaline Phosphatase 83 Creatine Kinase B-Natriuretic Peptide 1794.1 H Total Protein 6.4 Albumin 3.4 TSH 0.75 10/08/19 10/08/19 15:00 16:02 WBC RBC Hgb Hct MCV MCH MCHC RDW Plt Count MPV Absolute Neuts (auto) Neutrophils % Lymphocytes % Monocytes % Eosinophils % Basophils % PT with INR INR PTT (Actin FS) Sodium Potassium Chloride Carbon Dioxide Anion Gap BUN Creatinine Est GFR (CKD-EPI)AfAm Est GFR (CKD-EPI)NonAf Random Glucose Lactic Acid 1.1 Calcium Magnesium Total Bilirubin AST ALT Alkaline Phosphatase Creatine Kinase 211 H B-Natriuretic Peptide Total Protein Albumin TSH 10/07 Echo: LV normal, EF 55%; RV normal; mild to moderate MR; mild TR; mild AI; trace PI ASSESSMENT/PLAN 74 year-old female with a PMH significant for atrial fibrillatrion not on anti- coagulation, iron-deficiency anemia, hypothyroidism, gastric ulcers, lung mass, and dementia. Admitted for complaint of lower extremity pain. Lower extremity pain --US b/l LE ordered to r/o DVT --unremarkable exam Atrial fibrillation --presently in sinus rhythm, rate well-controlled, continue ToprolXL --during previous hospitalizaation underwent EGD and colonoscopy, two clean- based gastric ulcers seen, no obvious bleeding source; nevertheless, decision to start anti-coagulation was deferred pending further GI workup with recom mendation for capsule study --cardiology consult Iron-deficiency anemia --Hgb 8.2 which has been baseline over past few months, was 14.8 in 02/2019 --continue ferrous sulfate Hypothyroidism --TSH wnl --continue levothyroxine Gastric ulcers --continue protonix Lung mass --outpatient followup Dementia --outpatient workup pending FEN Fluids: PO intake adequate Electrolytes: replete as indicated Nutrition: regular diet DVT prophylaxis: subq lovenox Physical therapy Dispo: continues to require inpatient care; son wants patient to go to [facility]; full code. Visit type - Emergency Visit Emergency Visit: Yes ED Registration Date: 10/08/19 Care time: The patient presented to the Emergency Department on the above date and was hospitalized for further evaluation of their emergent condition. - New Patient This patient is new to me today: Yes Date on this admission: 10/09/19 - Critical Care Critical Care patient: No
[2019-10-08 19:02] LABS: ANISOCYTOSIS 2+
[2019-10-08] MEDS: FERROUS SO4 325 MG TABLET (FP) PO SCH (21:08)
[2019-10-08] MEDS ORDERED: PATIENT'S OWN MEDICATION (NON-FORMULARY) (Ferrous Sulfate [Ferrous Sulfate] 325 MG) PO SCH (22:00)
[2019-10-09] MEDS: LEVOTHYROXINE NA 50 MCG TABLET (FP) PO SCH (06:09)
[2019-10-09 08:13] LABS: BASO % 0.8 % (0-2.0); EOS % 4.4 % (0-4.5); HEMATOCRIT 27.8 % (32.4-45.2); HEMOGLOBIN 8.3 GM/dl (10.7-15.3); LYMPH % 18.8 % (8-40); MCHC 29.9 g/dl (32.0-36.0); MEAN PLT VOLUME 7.7 fl (7.5-11.1); MONO % 6.2 % (3.8-10.2); NEUT % 69.8 % (42.8-82.8); PLATELET COUNT 278 K/MM3 (134-434); RBC 4.28 M/mm3 (3.60-5.2); RDW 21.8 % (11.6-15.6); WHITE BLOOD COUNT 4.3 K/mm3 (4.0-10.8)
[2019-10-09 08:16] LABS: ALBUMIN 3.1 g/dl (3.4-5.0); BILIRUBIN,TOTAL 0.7 mg/dl (0.2-1); CALCIUM 8.4 mg/dl (8.5-10); CREATININE 0.5 mg/dl (0.55-1.3); MAGNESIUM 1.8 mg/dL (1.8-2.4); POTASSIUM 3.9 mmol/L (3.5-5.1); TOT PROT 5.9 g/dl (6.4-8.2)
[2019-10-09 08:20] LABS: MCH 19.4 pg (25.7-33.7)
[2019-10-09] MEDS ORDERED: metoPROLOL SUCCINATE 25 MG TAB.SR.24H (FP) PO SCH (10:00)
[2019-10-09] MEDS: DOCUSATE SODIUM 100 MG CAPSULE (FP) PO SCH (10:01)
[2019-10-09] MEDS: FERROUS SO4 325 MG TABLET (FP) PO SCH ×2 (10:01→22:19)
[2019-10-09] MEDS: PANTOPRAZOLE 40 MG TABLET PO SCH (10:01)
[2019-10-09] MEDS ORDERED: METOPROLOL TARTRATE 5 MG/5 ML VIAL IVPUSH PRN (10:08)
[2019-10-09] MEDS ORDERED: metoPROLOL SUCCINATE 25 MG TAB.SR.24H (FP) PO ONE (10:13)
--- NOTE | 2019-10-09 10:13 | EKG ---
Test Reason : Blood Pressure : / mmHG Vent. Rate : 069 BPM Atrial Rate : 069 BPM P-R Int : 126 ms QRS Dur : 080 ms QT Int : 420 ms P-R-T Axes : 075 -76 028 degrees QTc Int : 450 ms SINUS RHYTHM WITH PREMATURE ATRIAL COMPLEXES LEFT AXIS DEVIATION T WAVE ABNORMALITY, CONSIDER LATERAL ISCHEMIA ABNORMAL ECG WHEN COMPARED WITH ECG OF 02-SEP-2019 13:28, VENT. RATE HAS DECREASED BY 39 BPM T WAVE INVERSION NOW EVIDENT IN LATERAL LEADS Confirmed by Santiago Bucio MD ([id number]) on 10/09/2019 10:13:34 AM Referred By: DR VOGT Confirmed By:Santiago Bucio MD
--- NOTE | 2019-10-09 10:15 | PN ---
Physical Exam: SUBJECTIVE: Patient seen and examined OBJECTIVE: Vital Signs Period Temp Pulse Resp BP Sys/Barriga Pulse Ox Last 24 Hr 98.2 F-99.0 F 61-78 16-19 125-155/52-68 96-100 GENERAL: Awake, alert, and fully oriented ([facility], 2019) LUNGS: Breath sounds equal, clear to auscultation bilaterally. No wheezes, and no crackles. No accessory muscle use. HEART: Irregular S1 and S2 ABDOMEN: Soft, nontender, not distended, normoactive bowel sounds, no guarding, no rebound UPPER EXTREMITIES: 2+ pulses, warm, well-perfused. No cyanosis. No clubbing. No peripheral edema. LOWER EXTREMITIES: 2+ pulses, warm, well-perfused. No calf tenderness. No peripheral edema. NEUROLOGICAL: Cranial nerves II-XII intact. Normal speech.. Laboratory Results - last 24 hr 10/08/19 10/08/19 10/08/19 15:00 15:00 15:00 WBC 6.5 RBC 4.14 Hgb 8.2 L Hct 27.0 L D MCV 65.2 L D MCH 19.8 L MCHC 30.4 L RDW 22.9 H D Plt Count 321 MPV 7.4 L Absolute Neuts (auto) 5.1 Neutrophils % 77.6 Lymphocytes % 13.1 Monocytes % 6.4 Eosinophils % 2.4 Basophils % 0.5 Hypochromia 2+ Anisocytosis 2+ Microcytosis 2+ Schistocytes 1+ PT with INR 13.4 H INR 1.20 PTT (Actin FS) 24.5 L Sodium 140 Potassium 4.2 Chloride 108 H Carbon Dioxide 24 Anion Gap 8 BUN 24.0 H Creatinine 0.6 Est GFR (CKD-EPI)AfAm 103.34 Est GFR (CKD-EPI)NonAf 89.16 Random Glucose 122 H Lactic Acid Calcium 8.3 L Magnesium 2.0 Total Bilirubin 0.8 AST 26 ALT 17 Alkaline Phosphatase 83 Creatine Kinase Creatine Kinase Index CK-MB (CK-2) Troponin I B-Natriuretic Peptide 1794.1 H Total Protein 6.4 Albumin 3.4 TSH 0.75 Urine Color Urine Appearance Urine pH Urine Protein Urine Glucose (UA) Urine Ketones Urine Blood Urine Nitrite Urine Bilirubin Urine Urobilinogen Ur Leukocyte Esterase 10/08/19 10/08/19 10/08/19 15:00 16:02 16:02 WBC RBC Hgb Hct MCV MCH MCHC RDW Plt Count MPV Absolute Neuts (auto) Neutrophils % Lymphocytes % Monocytes % Eosinophils % Basophils % Hypochromia Anisocytosis Microcytosis Schistocytes PT with INR INR PTT (Actin FS) Sodium Potassium Chloride Carbon Dioxide Anion Gap BUN Creatinine Est GFR (CKD-EPI)AfAm Est GFR (CKD-EPI)NonAf Random Glucose Lactic Acid 1.1 Calcium Magnesium Total Bilirubin AST ALT Alkaline Phosphatase Creatine Kinase 211 H Creatine Kinase Index 1.8 CK-MB (CK-2) 3.8 H Troponin I < 0.03 B-Natriuretic Peptide Total Protein Albumin TSH Urine Color Urine Appearance Urine pH Urine Protein Urine Glucose (UA) Urine Ketones Urine Blood Urine Nitrite Urine Bilirubin Urine Urobilinogen Ur Leukocyte Esterase 10/08/19 10/09/19 10/09/19 20:20 00:00 07:08 WBC 4.3 RBC 4.28 Hgb 8.3 L Hct 27.8 L MCV 65.0 L MCH 19.4 L MCHC 29.9 L RDW 21.8 H Plt Count 278 MPV 7.7 Absolute Neuts (auto) 3.0 Neutrophils % 69.8 Lymphocytes % 18.8 Monocytes % 6.2 Eosinophils % 4.4 Basophils % 0.8 Hypochromia Anisocytosis Microcytosis Schistocytes PT with INR INR PTT (Actin FS) Sodium Potassium Chloride Carbon Dioxide Anion Gap BUN Creatinine Est GFR (CKD-EPI)AfAm Est GFR (CKD-EPI)NonAf Random Glucose Lactic Acid Calcium Magnesium Total Bilirubin AST ALT Alkaline Phosphatase Creatine Kinase 158 Creatine Kinase Index 1.2 CK-MB (CK-2) 2.0 Troponin I < 0.02 B-Natriuretic Peptide Total Protein Albumin TSH Urine Color Yellow Urine Appearance Clear Urine pH 8.5 H Urine Protein Negative Urine Glucose (UA) Negative Urine Ketones Negative Urine Blood Negative Urine Nitrite Negative Urine Bilirubin Negative Urine Urobilinogen 0.2 Ur Leukocyte Esterase Negative 10/09/19 07:08 WBC RBC Hgb Hct MCV MCH MCHC RDW Plt Count MPV Absolute Neuts (auto) Neutrophils % Lymphocytes % Monocytes % Eosinophils % Basophils % Hypochromia Anisocytosis Microcytosis Schistocytes PT with INR INR PTT (Actin FS) Sodium 139 Potassium 3.9 Chloride 106 Carbon Dioxide 25 Anion Gap 8 BUN 20.0 H Creatinine 0.5 L Est GFR (CKD-EPI)AfAm 109.73 Est GFR (CKD-EPI)NonAf 94.67 Random Glucose 92 Lactic Acid Calcium 8.4 L Magnesium 1.8 Total Bilirubin 0.7 AST 21 ALT 14 Alkaline Phosphatase 77 Creatine Kinase Creatine Kinase Index CK-MB (CK-2) Troponin I B-Natriuretic Peptide Total Protein 5.9 L Albumin 3.1 L TSH Urine Color Urine Appearance Urine pH Urine Protein Urine Glucose (UA) Urine Ketones Urine Blood Urine Nitrite Urine Bilirubin Urine Urobilinogen Ur Leukocyte Esterase Active Medications Generic Name Dose Route Start Last Admin Trade Name Freq PRN Reason Stop Dose Admin Docusate Sodium 100 mg 10/09/19 10:00 10/09/19 10:01 Colace - PO 100 mg DAILY BRITTANY Administration Ferrous Sulfate 325 mg 10/08/19 22:00 10/09/19 10:01 Feosol - PO 325 mg BID BRITTANY Administration Levothyroxine Sodium 50 mcg 10/09/19 07:00 10/09/19 06:09 Synthroid - PO 50 mcg ACBK BRITTANY Administration Metoprolol Succinate 25 mg 10/09/19 10:00 10/09/19 10:01 Toprol Xl - PO 25 mg DAILY BRITTANY Administration Metoprolol Succinate 25 mg 10/09/19 10:13 Toprol Xl - PO 10/09/19 10:14 ONCE ONE Metoprolol Tartrate 5 mg 10/09/19 10:08 Lopressor Injection - IVPUSH Q4H PRN TACHYCARDIA Pantoprazole Sodium 40 mg 10/09/19 10:00 10/09/19 10:01 Protonix - PO 40 mg DAILY BRITTANY Administration ASSESSMENT/PLAN: 10/07 Echo: LV normal, EF 55%; RV normal; mild to moderate MR; mild TR; mild AI; trace PI ASSESSMENT/PLAN 74 year-old female with a PMH significant for atrial fibrillatrion not on anti- coagulation, iron-deficiency anemia, hypothyroidism, gastric ulcers, lung mass, and dementia. Admitted for complaint of lower extremity pain. Lower extremity pain --US b/l LE: negative for DVT --unremarkable exam Atrial fibrillation with RVR --this morning went into afib with rate to 160s; given additional dose of ToprolXL 25mg and lopressor IVP x 1 with reversion back to sinus rhythm; will continue telemetry monitoring --seen and evaluated by cardiology: continue to defer long-term anticoagulation pending further evaluation (capsule study) and stabilization of patient's living conditions which right now pose risk to her being on a/c (dementia, unsupervised medications, falling) Iron-deficiency anemia --Hgb 8.3 which has been baseline over past few months, was 14.8 in 02/2019 --continue ferrous sulfate Hypothyroidism --TSH wnl --continue levothyroxine Gastric ulcers --continue protonix Lung mass --outpatient followup Dementia --outpatient workup pending COVID (-) --swabbed 10/07 FEN Fluids: PO intake adequate Electrolytes: replete as indicated Nutrition: regular diet DVT prophylaxis: subq lovenox Physical therapy Dispo: continues to require inpatient care; son wants patient to go to [facility]; full code. Visit type - Emergency Visit Emergency Visit: Yes ED Registration Date: 10/08/19 Care time: The patient presented to the Emergency Department on the above date and was hospitalized for further evaluation of their emergent condition. - New Patient This patient is new to me today: No - Critical Care Critical Care patient: No
--- NOTE | 2019-10-09 10:31 | CON.CARD ---
Cardiology Consult (text) - Consultation Consultation Note: Consult Specialty:: cardiology Referred by:: medicine Reason for Consultation:: palpitations - History of Present Illness Chief Complaint: palpitations History of Present Illness: 74F h/o hypothyroidism on synthroid, GERD, afib p/w L leg swelling/pain from knee down. She was recently admitted to [facility] for anemia, evaluated by GI with EGD/colo which showed diverticulosis with no bleeding. with consideration of small bowel capsule study as outpatient, which has not been done. also s/p appendectomy 08/2019. Was diagnosed with afib at this admission, not on AC due to anemia. currently no chest pain, palps, dizziness, dyspnea - Past Medical History Endocrine: Yes: Hyperthyroidism - Past Surgical History Additional Surgical History: Denies - Alcohol/Substance Use Hx Alcohol Use: No - Smoking History Smoking history: Never smoked Have you smoked in the past 12 months: No Aproximately how many cigarettes per day: 20 If you are a former smoker, when did you quit?: 2007 - Social History Usual Living Arrangement: With Child ADL: Independent History of Recent Travel: No Home Medications - Allergies Allergies/Adverse Reactions: Allergies Allergy/AdvReac Type Severity Reaction Status Date / Time No Known Allergies Allergy Verified 10/08/19 14:36 Home Medications Medication Instructions Recorded Docusate Sodium [Colace] 100 mg PO DAILY #30 capsule 09/11/19 Ferrous Sulfate 325 mg PO BID #60 tablet 09/11/19 Levothyroxine [Synthroid -] 50 mcg PO DAILY #30 tablet 09/11/19 Metoprolol Succinate 25 mg PO DAILY #30 tab.er.24h 09/11/19 Pantoprazole Sodium [Protonix -] 40 mg PO DAILY #30 tablet.ec 09/11/19 Family Medical History Family History: Unremarkable Review of Systems - Review of Systems Constitutional: reports: No Symptoms Eyes: reports: No Symptoms HENT: reports: No Symptoms Neck: reports: No Symptoms Cardiovascular: reports: No Symptoms Respiratory: reports: No Symptoms Gastrointestinal: reports: No Symptoms Genitourinary: reports: No Symptoms Musculoskeletal: reports: No Symptoms Integumentary: reports: No Symptoms Neurological: reports: No Symptoms Endocrine: reports: No Symptoms Hematology/Lymphatic: reports: No Symptoms Psychiatric: reports: No Symptoms Vital Signs: Vital Signs Period Temp Pulse Resp BP Sys/Barriga Pulse Ox Last 24 Hr 98.2 F-99.0 F 61-162 16-19 125-155/52-72 96-100 Constitutional: Yes: No Distress, Calm Eyes: Yes: Conjunctiva Clear, EOM Intact HENT: Yes: Atraumatic, Normocephalic Neck: Yes: Supple, Trachea Midline Respiratory: Yes: Regular, CTA Bilaterally Gastrointestinal: Yes: Normal Bowel Sounds, Soft Cardiovascular: Yes: irregular, tachycardia Heart Sounds: Yes: S1, S2 Extremities: No: Cold Integumentary: No: Jaundice Neurological: Yes: Alert Psychiatric: No: Agitated Laboratory Last Values WBC 4.3 K/mm3 (4.0-10.8) 10/09/19 07:08 RBC 4.28 M/mm3 (3.60-5.2) 10/09/19 07:08 Hgb 8.3 GM/dl (10.7-15.3) L 10/09/19 07:08 Hct 27.8 % (32.4-45.2) L 10/09/19 07:08 MCV 65.0 fl (80-96) L 10/09/19 07:08 MCH 19.4 pg (25.7-33.7) L 10/09/19 07:08 MCHC 29.9 g/dl (32.0-36.0) L 10/09/19 07:08 RDW 21.8 % (11.6-15.6) H 10/09/19 07:08 Plt Count 278 K/MM3 (134-434) 10/09/19 07:08 MPV 7.7 fl (7.5-11.1) 10/09/19 07:08 Absolute Neuts (auto) 3.0 K/mm3 10/09/19 07:08 Neutrophils % 69.8 % (42.8-82.8) 10/09/19 07:08 Lymphocytes % 18.8 % (8-40) 10/09/19 07:08 Monocytes % 6.2 % (3.8-10.2) 10/09/19 07:08 Eosinophils % 4.4 % (0-4.5) 10/09/19 07:08 Basophils % 0.8 % (0-2.0) 10/09/19 07:08 Hypochromia 2+ 10/08/19 15:00 Anisocytosis 2+ 10/08/19 15:00 Microcytosis 2+ 10/08/19 15:00 Schistocytes 1+ 10/08/19 15:00 PT with INR 13.4 SEC (10.2-13.0) H 10/08/19 15:00 INR 1.20 (0.82-1.09) 10/08/19 15:00 PTT (Actin FS) 24.5 SECONDS (25.2-36.5) L 10/08/19 15:00 Sodium 139 mmol/L (136-145) 10/09/19 07:08 Potassium 3.9 mmol/L (3.5-5.1) 10/09/19 07:08 Chloride 106 mmol/L (98-107) 10/09/19 07:08 Carbon Dioxide 25 mmol/L (21-32) 10/09/19 07:08 Anion Gap 8 MMOL/L (8-16) 10/09/19 07:08 BUN 20.0 mg/dl (7-18) H 10/09/19 07:08 Creatinine 0.5 mg/dl (0.55-1.3) L 10/09/19 07:08 Est GFR (CKD-EPI)AfAm 109.73 10/09/19 07:08 Est GFR (CKD-EPI)NonAf 94.67 10/09/19 07:08 Random Glucose 92 mg/dl (74-106) 10/09/19 07:08 Lactic Acid 1.1 mmol/L (0.4-2.0) 10/08/19 15:00 Calcium 8.4 mg/dl (8.5-10) L 10/09/19 07:08 Magnesium 1.8 mg/dL (1.8-2.4) 10/09/19 07:08 Total Bilirubin 0.7 mg/dl (0.2-1) 10/09/19 07:08 AST 21 U/L (15-37) 10/09/19 07:08 ALT 14 U/L (13-61) 10/09/19 07:08 Alkaline Phosphatase 77 U/L (45-117) 10/09/19 07:08 Creatine Kinase 158 U/L (26-192) 10/09/19 00:00 Creatine Kinase Index 1.2 % (0.0-5.0) 10/09/19 00:00 CK-MB (CK-2) 2.0 ng/mL (0.5-3.6) 10/09/19 00:00 Troponin I < 0.02 ng/ml (0.00-0.05) 10/09/19 00:00 B-Natriuretic Peptide 1794.1 pg/ml (5-450) H 10/08/19 15:00 Total Protein 5.9 g/dl (6.4-8.2) L 10/09/19 07:08 Albumin 3.1 g/dl (3.4-5.0) L 10/09/19 07:08 TSH 0.75 uIU/ml (0.358-3.74) 10/08/19 15:00 Urine Color Yellow 10/08/19 20:20 Urine Appearance Clear 10/08/19 20:20 Urine pH 8.5 (4.5-8) H 10/08/19 20:20 Urine Protein Negative (NEGATIVE) 10/08/19 20:20 Urine Glucose (UA) Negative (NEGATIVE) 10/08/19 20:20 Urine Ketones Negative (NEGATIVE) 10/08/19 20:20 Urine Blood Negative (NEGATIVE) 10/08/19 20:20 Urine Nitrite Negative (NEGATIVE) 10/08/19 20:20 Urine Bilirubin Negative (NEGATIVE) 10/08/19 20:20 Urine Urobilinogen 0.2 (0.2-1.0) 10/08/19 20:20 Ur Leukocyte Esterase Negative (NEGATIVE) 10/08/19 20:20 Assessment/Plan EKG: sinus with PACs, lateral TWI echo 08/2019 nl LV function, mild to mod MR, mild TR, mild AR, tr [place] tele: sinus -> afib with RVR this AM 140s-160s afib - received metoprolol succinate 25 mg this AM - will give additional metoprolol succinate 25 mg additional dose as well as lopressor 5 mg IV - [id number] warrants AC however given small bowel capsule study pending in setting of anemia as well as dementia (concern for taking entire bottle of meclizine) and falls risks may be high risk for anticoagulation - cont metoprolol anemia - 08/2019 - colonoscopy showed diverticulosis with no active bleeding - consideration for small bowel capsule study as outpatient for further workup, per GI last admission - monitor H/H dementia - manage per primary
[2019-10-09] MEDS ORDERED: MAGNESIUM SULF 50% (8.12 MEQ/2 ML-1 GM VIAL) IVPB ONE (11:45)
[2019-10-09] MEDS: ENOXAPARIN NA (PORCINE) 30 MG/0.3 ML DISP.SYRIN SQ SCH (14:35)
[2019-10-09 14:40] VITALS: BMI 18.8
[2019-10-09 17:00] LABS: PLATELET ESTIMATE ADEQUATE
[2019-10-10] MEDS: LEVOTHYROXINE NA 50 MCG TABLET (FP) PO SCH (07:49)
[2019-10-10] MEDS ORDERED: metoPROLOL SUCCINATE 25 MG TAB.SR.24H (FP) PO SCH (08:07)
[2019-10-10 09:41] VITALS: BP 148/65; PULSE 65; TEMP 98.3
[2019-10-10] MEDS: FERROUS SO4 325 MG TABLET (FP) PO SCH (10:00)
[2019-10-10] MEDS: PANTOPRAZOLE 40 MG TABLET PO SCH (10:00)
[2019-10-10] MEDS: ENOXAPARIN NA (PORCINE) 30 MG/0.3 ML DISP.SYRIN SQ SCH (10:01)
[2019-10-10] MEDS: DOCUSATE SODIUM 100 MG CAPSULE (FP) PO SCH (10:01)
--- NOTE | 2019-10-10 10:29 | PN ---
Progress Note (short form) - Note Progress Note: cc: palpitations s: no chest pain, palps, dizziness, dyspnea Current Medications Generic Name Dose Route Start Last Admin Trade Name Freq PRN Reason Stop Dose Admin Docusate Sodium 100 mg 10/09/19 10:00 10/10/19 10:01 Colace - PO 100 mg DAILY BRITTANY Administration Enoxaparin Sodium 30 mg 10/09/19 14:00 10/10/19 10:01 Lovenox - SQ 30 mg DAILY BRITTANY Administration Ferrous Sulfate 325 mg 10/08/19 22:00 10/10/19 10:00 Feosol - PO 325 mg BID BRITTANY Administration Levothyroxine Sodium 50 mcg 10/09/19 07:00 10/10/19 07:49 Synthroid - PO 50 mcg ACBK BRITTANY Administration Metoprolol Succinate 50 mg 10/10/19 08:30 10/10/19 10:00 Toprol Xl - PO 50 mg DAILY BRITTANY Administration Metoprolol Tartrate 5 mg 10/09/19 10:08 10/09/19 10:25 Lopressor Injection - IVPUSH 5 mg Q4H PRN Administration TACHYCARDIA Pantoprazole Sodium 40 mg 10/09/19 10:00 10/10/19 10:00 Protonix - PO 40 mg DAILY BRITTANY Administration Vital Signs Period Temp Pulse Resp BP Sys/Barriga Pulse Ox Last 24 Hr 98.3 F-98.5 F 60-162 17-19 109-154/52-72 96-100 Constitutional: Yes: No Distress, Calm Eyes: Yes: Conjunctiva Clear, EOM Intact HENT: Yes: Atraumatic, Normocephalic Neck: Yes: Supple, Trachea Midline Respiratory: Yes: Regular, CTA Bilaterally Gastrointestinal: Yes: Normal Bowel Sounds, Soft Cardiovascular: Yes: irregular, tachycardia Heart Sounds: Yes: S1, S2 Extremities: No: Cold Integumentary: No: Jaundice Neurological: Yes: Alert Psychiatric: No: Agitated Assessment/Plan EKG: sinus with PACs, lateral TWI echo 08/2019 nl LV function, mild to mod MR, mild TR, mild AR, tr [place] tele: sinus, PVCs afib - cont metoprolol succinate 50 mg daily - [id number] warrants AC however given small bowel capsule study pending in setting of anemia as well as dementia (concern for taking entire bottle of meclizine) and falls risks may be high risk for anticoagulation - cont metoprolol anemia - 08/2019 - colonoscopy showed diverticulosis with no active bleeding - consideration for small bowel capsule study as outpatient for further workup, per GI last admission - monitor H/H dementia - manage per primary
--- NOTE | 2019-10-10 10:45 | DS ---
Physical Exam: SUBJECTIVE: Patient seen and examined OBJECTIVE: Vital Signs Period Temp Pulse Resp BP Sys/Barriga Pulse Ox Last 24 Hr 98.3 F-98.5 F 60-65 17-19 109-148/52-65 96-100 PHYSICAL EXAM GENERAL: Awake, alert, and fully oriented ([facility], 2019) LUNGS: Breath sounds equal, clear to auscultation bilaterally. No wheezes, and no crackles. No accessory muscle use. HEART: Regular S1 and S2 ABDOMEN: Soft, nontender, not distended, normoactive bowel sounds, no guarding, no rebound UPPER EXTREMITIES: 2+ pulses, warm, well-perfused. No cyanosis. No clubbing. No peripheral edema. LOWER EXTREMITIES: 2+ pulses, warm, well-perfused. No calf tenderness. No peripheral edema. NEUROLOGICAL: Cranial nerves II-XII intact. Normal speech.. LABS Laboratory Results - last 24 hr 10/08/19 10/08/19 15:00 15:00 Platelet Estimate Adequate COVID-19 (JOHN) Not detected HOSPITAL COURSE: Date of Admission:10/08/19 Date of Discharge: 10/10/19 Pre hospital course 74 year-old female with a PMH significant for atrial fibrillatrion not on anti- coagulation, iron-deficiency anemia, hypothyroidism, gastric ulcers, lung mass, and dementia. Recent hospitalization 09/01-09/10 at [facility] for newly diagnosed atrial fibrillation and, during same visit, underwent lap appendectomy. Patient brought to ED by son for her complaints of lower extremity pain. Son also states patient suffers from dementia. She wanders the streets every day, becomes agitated sometimes, and falls. He gets calls from local residents. Patient also has no supervision with respect to her meds, he recently discovered she had taken 30 days of meclizine over a 7 day period. Patient lives with another son who does not provide any support or supervision. Patient is supposed to undergo evaluation for dementia with a neurologist being arranged by PCP. ER course (1) Troponin neg x 1 (2) BP 125/63, p75 (3) ECG: sinus rhythm @69 with TWI V1, 3,4,5,6 (seen on previous ECG 09/02/19) Subsequent hospital course 74 year-old female with a PMH significant for atrial fibrillatrion not on anti- coagulation, iron-deficiency anemia, hypothyroidism, gastric ulcers, lung mass, and dementia. Admitted for complaint of lower extremity pain. Lower extremity pain --US b/l LE: negative for DVT --unremarkable exam Paroxysmal afib --one episode of afib with RVR on 10/08, treated with additional dose of ToprolXL 25mg and lopressor IVP x 1 with reversion back to sinus rhythm; discharged on increased dose of ToprolXL 50mg daily --seen and evaluated by cardiology: continue to defer long-term anticoagulation pending further evaluation (capsule study) and stabilization of patient's living conditions which right now pose risk to her being on a/c (dementia, unsupervised medications, falling) Iron-deficiency anemia --Hgb 8.3 which has been baseline over past few months, was 14.8 in 02/2019 --continued ferrous sulfate Hypothyroidism --TSH wnl --continued levothyroxine Gastric ulcers --continued protonix Lung mass --outpatient followup Dementia --outpatient workup planned with Dr. Molina, neurologist AILEEN (-) --swabbed 10/07 Minutes to complete discharge: 35 Discharge Summary Problems reviewed: Yes Reason For Visit: PROGRESIVE DEMENTIA WITH UNCERTAIN ETIOLOGY Current Active Problems Edema leg (Acute) Progressive dementia with uncertain etiology (Acute) Right leg swelling (Acute) Condition: Improved - Instructions Diet, Activity, Other Instructions: During your hospital stay your dose of Toprol XL was increased to 50mg daily. Continue to take this increased dose. A prescription has been sent to your pharmacy. You should follow up with Dr. Molina, your primary care provider, within one week of your discharge. It is recommended you also follow up with a paper products supervisor to continue the workup that was started during your last hospitalization. Contact information for Dr. Jorge Mcbride is enclosed in this discharge packet. You should discuss this with Dr. Molina as well. Return to the emergency department for any new or worsening symptoms. Referrals: Elpidio Molina MD [Primary Care Provider] - 1 Week Jorge Mcbride MD [Staff Physician] - 1 Week Disposition: HOME - Home Medications Comprehensive Discharge Medication List: Ambulatory Orders Docusate Sodium [Colace] 100 mg PO DAILY #30 capsule 09/11/19 Ferrous Sulfate 325 mg PO BID #60 tablet 09/11/19 Levothyroxine [Synthroid -] 50 mcg PO DAILY #30 tablet 09/11/19 Metoprolol Succinate 25 mg PO DAILY #30 tab.er.24h 09/11/19 Pantoprazole Sodium [Protonix -] 40 mg PO DAILY #30 tablet.ec 09/11/19 This patient is new to me today: No Emergency Visit: Yes ED Registration Date: 10/08/19 Care time: The patient presented to the Emergency Department on the above date and was hospitalized for further evaluation of their emergent condition. Critical Care patient: No - Discharge Referral Referred to [facility] Med [facility].C.: No
== END 2019-10-10 12:30 | disposition home or self-care (01) | DRG 884 ==
LOC: FER 14:35 → FM/S 15:59
PROVIDERS: ADMIT Internal Medicine; ATTEND Nurse Practitioner Acute Care
DX: F03.90 Unspecified dementia, unspecified severity, without behavioral disturbance, psychotic disturbance, mood disturbance, and anxiety (principal); E03.9 Hypothyroidism, unspecified; M81.0 Age-related osteoporosis without current pathological fracture; D50.9 Iron deficiency anemia, unspecified; I48.0 Paroxysmal atrial fibrillation; R91.8 Other nonspecific abnormal finding of lung field; K25.7 Chronic gastric ulcer without hemorrhage or perforation; M79.661 Pain in right lower leg; M79.662 Pain in left lower leg; Z87.11 Personal history of peptic ulcer disease
CPT/HCPCS: 36415; 71045-TC-FY; 80053; 81003; 82550; 82553; 83605; 83735; 83880; 84443; 84484; 85025; 85610; 85730; 87086; 93005; 93970-TC; 97116-GP; 97162-GP; 99285-25; U0003

== ENCOUNTER 2019-12-05 15:32 | Emergency (ER) | payer OTHER ==
[2019-12-05 16:14] VITALS: BP 133/52; PULSE 42; TEMP 98.4; BMI 20.1
--- NOTE | 2019-12-05 17:20 | PDOC ---
History of Present Illness - General Chief Complaint: Injury Stated Complaint: FELL ABOUT AWEEK AGO INJURED LEFT KNEE AND ANKLE Time Seen by Provider: 12/05/19 15:42 History Source: Patient Exam Limitations: No Limitations - History of Present Illness Initial Comments: 12/05/19 17:16 she has follow-up scheduled with her svp programmatic tv in 2 weeks 74-year-old here today status post fall 1 week ago [place] step landing on her left knee complaining of left knee and ankle pain. Has had minimal swelling in the left ankle has been ambulating on it with some pain no deformities states she did not hit her head during the fall today she was talking with her sister who convinced her to come to the ED for evaluation Past History - Medical History Allergies/Adverse Reactions: Allergies Allergy/AdvReac Type Severity Reaction Status Date / Time No Known Allergies Allergy Verified 12/05/19 15:34 Home Medications: Ambulatory Orders Docusate Sodium [Colace] 100 mg PO DAILY #30 capsule 09/11/19 Ferrous Sulfate 325 mg PO BID #60 tablet 09/11/19 Levothyroxine [Synthroid -] 50 mcg PO DAILY #30 tablet 09/11/19 Pantoprazole Sodium [Protonix -] 40 mg PO DAILY #30 tablet.ec 09/11/19 Metoprolol Succinate [Toprol XL -] 50 mg PO DAILY #30 tab.sr.24h 10/10/19 Donepezil HCl [Aricept] 5 mg PO DAILY 12/05/19 Meclizine HCl 25 mg PO PRN 12/05/19 Anemia: No Asthma: No Cancer: No Cardiac Disorders: No CVA: No COPD: No CHF: No Dementia: Yes Diabetes: No GI Disorders: Yes (GERD) Disorders: No HTN: No Hypercholesterolemia: No Liver Disease: No Seizures: No Thyroid Disease: Yes (HYPOTHYROID) Other medical history: VERTIGO - Surgical History Abdominal Surgery: No Appendectomy: No Cardiac Surgery: No Cholecystectomy: No Lung Surgery: No Neurologic Surgery: No Orthopedic Surgery: No - Immunization History Td Vaccination: Yes TDAP Vaccination: Yes Immunization Up to Date: Yes - Psycho-Social/Smoking History Smoking Status: No Smoking History: Never smoked Have you smoked in the past 12 months: No Number of Cigarettes Smoked Daily: 20 If you are a former smoker, when did you quit?: 2007 Information on smoking cessation initiated: No - Substance Abuse Hx (Audit-C & DAST Scrn) How often the patient has a drink containing alcohol: Never Score: In Men: 4 or > Positive; In Women: 3 or > Positive: 0 Screen Result (Pos requires Nsg. Audit-10AR): Negative In the last yr the pt used illegal drug/Rx for NonMed reason: No Score: Yes response is considered Positive: 0 Screen Result (Positive result requires Nsg. DAST-10): Negative Review of Systems - Review of Systems Constitutional: No: Diaphoresis, Fever HEENTM: No: Eye Pain Respiratory: No: Cough, Orthopnea, Shortness of Breath Cardiac (ROS): No: Chest Pain, Edema ABD/GI: No: Constipated, Diarrhea : No: Burning, Dysuria, Discharge Musculoskeletal: Yes: Joint Pain Integumentary: No: Bruising All Other Systems: Reviewed and Negative *Physical Exam - Vital Signs Last Vital Signs Temp Pulse Resp BP Pulse Ox 98.4 F 42 L 16 133/52 L 100 12/05/19 15:34 12/05/19 15:34 12/05/19 15:34 12/05/19 15:34 12/05/19 15:34 - Physical Exam 12/05/19 17:17 Patient is awake alert head is atraumatic there is no midline cervical spinal tenderness no TLS spine tenderness. Lungs are clear bilaterally heart is regular 30 murmurs rubs or gallops abdomen soft nontender extremities demonstrate straits pelvis which is nontender and stable the left knee has minimal tenderness on palpation there is no appreciated ecchymosis effusion or swelling patient has full range of motion at the knee the left ankle is noted to have some minimal swelling bilateral malleoli are is without tenderness she has mild tenderness over the talofibular fibular ligaments dorsolaterally 2+ DP PT pulses has full range of motion no ecchymosis noted skin overlying is warm dry and intact ED Treatment Course - RADIOLOGY Radiology Studies Ordered: Category Date Time Status ANKLE-LEFT [RAD] Stat Radiology 12/05/19 16:25 Completed KNEE 3 POS-LEFT [RAD] Stat Radiology 12/05/19 16:24 Completed Medical Decision Making - Medical Decision Making 12/05/19 17:18 74-year-old female status post trip and fall 1 week ago denies hitting her head complaining of knee and ankle pain. Plan x-rays of her knee and ankle X-rays are negative for any acute fracture will discharge to home given Tylenol for her pain told to follow-up with orthopedist as needed Discharge - Discharge Information Problems reviewed: Yes Clinical Impression/Diagnosis: Ankle injury, Knee injury Condition: Stable Disposition: HOME - Admission No - Follow up/Referral Referrals: Elpidio Molina MD [Primary Care Provider] - Tito Crews MD [Staff Physician] - - Patient Discharge Instructions Patient Printed Discharge Instructions: Ankle Sprain Additional Instructions: Your x-ray of your knee and ankle are negative for any acute broken bones. You can take Tylenol 500 mg every 6 hours as needed for pain you can also follow-up with an orthopedist see referral information for Dr. Crews call to schedule within 1 to 2 weeks as needed return for any problems or concerns - Post Discharge Activity
== END 2019-12-05 18:30 | disposition home or self-care (01) ==
LOC: FER 15:32
DX: M25.562 Pain in left knee (principal); M25.572 Pain in left ankle and joints of left foot
CPT/HCPCS: 73562-TC-LT-FY; 73610-TC-LT-FY; 99285-25

== ENCOUNTER 2020-01-14 11:10 | Observation (INO) | payer OTHER ==
--- NOTE | 2020-01-14 11:39 | PDOC ---
Attending Attestation - Resident Resident Name: ReginaYenifer - ED Attending Attestation I have performed the following: I have examined & evaluated the patient, The case was reviewed & discussed with the resident, I agree w/resident's findings & plan, Exceptions are as noted - HPI HPI: 01/14/20 11:37 74 year-old female with a PMH significant for atrial fibrillatrion not on anti- coagulation, iron-deficiency anemia, hypothyroidism, gastric ulcers, lung mass, and dementia brought in today by her daughter for concerns of unsafe home condition. pt lives with her son who has mental illness. frequently wanders, walking through town. today reported she had a fall. pt has been seen for several falls in the past. no new medications. no f/c no n/v . fall unwitnessed, per pt report. pt is very poor historian due to dementia. daughter who at bedside provides history, in addition to old chart review. pt only complaint at this time is feeling lightheaded. denies vertigo. states she tripped up some stairs today. also c/o left sided rib pain. is supposed to ambulate with a walker. did not use walker today. 01/14/20 11:51 - Physicial Exam PE: 01/14/20 11:37 awake alert lungs clear bilat heart rrr no mrg abd soft nt nd ext wwp. no edema. no calf tenderness. skin warm and dry intact. small abrasion over left pinky finger. neuro exam CN II - XII intact. 5/5 all four ext. finger to nose normal. alt hand movement normal right hand, abnormal left hand. pos debby hallpike to right with horiz nystagmus, but feels sxs to left. gait not tested. speech clear. 01/14/20 11:37 01/14/20 13:23 - Medical Decision Making 01/14/20 11:52 74 yo F h/o afib, ( bret unsure of anticoagulation) htn dementia, here with fall, worsening dementia, concerns for home safety per pt daughter. pt denies any domestic violence, or abuse in home. has been eating less. plan labs ct head, c spine,k cxr r/o rib fx. olinda admit for pt safety.social work consulted. pt with long standing history of vertigo, has taken meclizine in the past. given meclizine here for dizziness. . 01/14/20 13:24 01/14/20 13:55 d/w pt neurologist. dr Shauna [place], pt has prior diagnosis memory loss, di zziness. on donepizil. can cause dizziness. no prior diagnosis of vertigo. has appt with pan on 01/28. recent MrI 11/28 showed small chornic bleed, and chronic ischemic changes, volume loss. no focal infarct. per daughter. pt has had vertigo in the past and has been on meclizine in the past. Discharge - Discharge Information Problems reviewed: Yes Clinical Impression/Diagnosis: Falls frequently, Confusion Condition: Good - Follow up/Referral Referrals: Elpidio Molina MD [Primary Care Provider] - - Patient Discharge Instructions - Post Discharge Activity
[2020-01-14] MEDS ORDERED: ACETAMINOPHEN 1000 MG/100 ML VIAL (NON FORMULARY) IVPB ONE (11:46)
[2020-01-14] MEDS ORDERED: ACETAMINOPHEN 325 MG TABLET (FP) PO ONE (12:00)
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
[2020-01-14 12:24] LABS: HEMATOCRIT 31.5 % (32.4-45.2); HEMOGLOBIN 9.7 GM/dl (10.7-15.3); MCH 21.5 pg (25.7-33.7); MCHC 30.8 g/dl (32.0-36.0); MEAN CELL VOLUME 69.9 fl (80-96); MEAN PLT VOLUME 8.1 fl (7.5-11.1); PLATELET COUNT 312 K/MM3 (134-434); RDW 17.6 % (11.6-15.6)
[2020-01-14 12:33] LABS: ALBUMIN 3.3 g/dl (3.4-5.0); BILIRUBIN,TOTAL 1.2 mg/dl (0.2-1); CALCIUM 8.8 mg/dl (8.5-10); CREATININE 0.5 mg/dl (0.55-1.3); POTASSIUM 3.9 mmol/L (3.5-5.1); TOT PROT 6.1 g/dl (6.4-8.2)
[2020-01-14] MEDS ORDERED: MECLIZINE HCL 25 MG TABLET (FP) PO ONE (12:50)
[2020-01-14] MEDS ORDERED: MECLIZINE HCL 25 MG TABLET (FP) ONE (12:53)
[2020-01-14] MEDS ORDERED: ACETAMINOPHEN 325 MG TABLET (FP) ONE (12:53)
--- NOTE | 2020-01-14 16:01 | HP ---
CHIEF COMPLAINT: Fall PCP: Dr. Molina HISTORY OF PRESENT ILLNESS: 74 year-old female with a PMH significant for atrial fibrillatrion not on anti- coagulation, iron-deficiency anemia, hypothyroidism, gastric ulcers, lung mass, and dementia. This is her third hospitalization since August 2019. Hospitalized 09/01-09/10 for newly diagnosed atrial fibrillation and, during same visit, underwent lap appendectomy. Hospitalized 10/07-10/09 for lower extremity pain with a negative workup. At that time, patient's son represented that patient wanders the streets every day, becomes agitated sometimes, and falls, and he gets complaints from local residents. On this presentation to the ED, patient's daughter makes the same representations. Patient was in town, she got calls from local shopkeepers, and the patient reportedly fell. Patient lives with a third child, Ramos Plasencia, who is also her HCP. ER course was notable for: (1) ECG: sinus rhythm @ 69bpm Recent Travel: No PAST MEDICAL HISTORY: Atrial fibrillation Hypothyroidism Iron-deficiency anemia Gastritic ulcers Lung mass Dementia PAST SURGICAL HISTORY: Lap appendectomy 09/10/19 (RADHA Jacobs) Social History: lives with older son Ramos Plasencia [phone] Smoking: no Alcohol: no Drugs: no Family history: unable to obtain from patient due to dementia Allergies No Known Allergies Allergy (Verified 12/05/19 15:34) HOME MEDICATIONS: Home Medications Medication Instructions Recorded Levothyroxine [Synthroid -] 50 mcg PO DAILY #30 tablet 09/11/19 Pantoprazole Sodium [Protonix -] 40 mg PO DAILY #30 tablet.ec 09/11/19 Metoprolol Succinate [Toprol XL -] 50 mg PO DAILY #30 tab.sr.24h 10/10/19 Donepezil HCl [Aricept] 10 mg PO DAILY 01/14/20 Meclizine HCl [Antivert -] 12.5 mg PO TID PRN 01/14/20 REVIEW OF SYSTEMS: unable to obtain from patient due to dementia PHYSICAL EXAMINATION Vital Signs - 24 hr 01/14/20 01/14/20 01/14/20 11:28 13:00 13:40 Temperature 98.2 F Pulse Rate 67 Pulse Rate [ 65 68 Radial] Respiratory 16 15 15 Rate Blood Pressure 123/70 Blood Pressure 133/69 142/63 [Right Arm] O2 Sat by Pulse 99 98 99 Oximetry (%) GENERAL: A&Ox2 HEAD: Normal with no signs of trauma. EYES: Pupils equal, round and reactive to light, extraocular movements intact, sclera anicteric, conjunctiva clear. No lid lag. EARS, NOSE, THROAT: Ears normal, nares patent, oropharynx clear without exudates. Moist mucous membranes. HEART: Regular rate and rhythm, normal S1 and S2 ABDOMEN: Soft, nontender, not distended MUSCULOSKELETAL: Normal range of motion at all joints. No bony deformities or tenderness. No CVA tenderness. UPPER EXTREMITIES: 2+ pulses, warm, well-perfused. No cyanosis. No clubbing. No peripheral edema. LOWER EXTREMITIES: 2+ pulses, warm, well-perfused. No calf tenderness. No peripheral edema. NEUROLOGICAL: Cranial nerves II-XII intact. Normal speech. Moves all extremities freely, self-positions easily Laboratory Results - last 24 hr 01/14/20 01/14/20 01/14/20 10:10 11:46 12:00 WBC 6.0 RBC 4.50 Hgb 9.7 L Hct 31.5 L MCV 69.9 L MCH 21.5 L MCHC 30.8 L RDW 17.6 H D Plt Count 312 MPV 8.1 Absolute Neuts (auto) 4.9 Neutrophils % No Result Required. Lymphocytes % No Result Required. Sodium 137 Potassium 3.9 Chloride 104 Carbon Dioxide 24 Anion Gap 9 BUN 16.0 Creatinine 0.5 L Est GFR (CKD-EPI)AfAm 109.73 Est GFR (CKD-EPI)NonAf 94.67 Random Glucose 92 Calcium 8.8 Total Bilirubin 1.2 H AST 19 ALT 13 Alkaline Phosphatase 94 Total Protein 6.1 L Albumin 3.3 L Urine Color Yellow Urine Appearance Clear Urine pH 7.0 Urine Protein Negative Urine Glucose (UA) Negative Urine Ketones 1+ H Urine Blood Negative Urine Nitrite Negative Urine Bilirubin Negative Urine Urobilinogen 0.2 Ur Leukocyte Esterase Negative ASSESSMENT/PLAN CT c-spine: no acute fracture; mild chronic T4 compression fracture CT head: no acute process Xray ribs: no acute fracture; old right rib trauma 10/07 Echo: LV normal, EF 55%; RV normal; mild to moderate MR; mild TR; mild AI; trace PI ASSESSMENT/PLAN 74 year-old female with a PMH significant for atrial fibrillatrion not on anti- coagulation, iron-deficiency anemia, hypothyroidism, gastric ulcers, lung mass, and dementia. Placed on observation following a fall. Fall --CT head, c-spine and rib xrays unremarkable Atrial fibrillation with RVR --in sinus rhythm, rate-controlled, continue ToprolXL --not an anti-coagualation; during last admission was seen and evaluated by cardiology, decision was made to defer long-term anticoagulation pending further GI workup (capsule study) and stabilization of patient's living conditions --outpatient follow up with PCP Dr. Molina Iron-deficiency anemia --Hgb 10.4, stable Vertigo --meclizine PRN Hypothyroidism --stable, continued levothyroxine Gastric ulcers --continued protonix Lung mass --outpatient followup Dementia --continued donepezil COVID Negative --swabbed 01/13 Family Medical History Family History: Unable to Obtain Visit type - Medication Review Med list reviewed for High Risk Meds patients 65 and older: Yes (protonix continued due to h/o gastric ulcers) - Emergency Visit Emergency Visit: Yes ED Registration Date: 01/14/20 Care time: The patient presented to the Emergency Department on the above date and was hospitalized for further evaluation of their emergent condition. - New Patient This patient is new to me today: Yes Date on this admission: 01/15/20 - Critical Care Critical Care patient: No
[2020-01-14 16:34] LABS: ADD RBC MORPHOLOGY YES
--- NOTE | 2020-01-14 17:10 | EKG ---
Test Reason : Blood Pressure : / mmHG Vent. Rate : 069 BPM Atrial Rate : 069 BPM P-R Int : 134 ms QRS Dur : 088 ms QT Int : 436 ms P-R-T Axes : 072 -74 055 degrees QTc Int : 467 ms SINUS RHYTHM WITH PREMATURE ATRIAL COMPLEXES LEFT AXIS DEVIATION NONSPECIFIC T WAVE ABNORMALITY ABNORMAL ECG WHEN COMPARED WITH ECG OF 08-OCT-2019 15:48, T WAVE VARIATION Confirmed by CHARLINE RAMOS MD ([id number]) on 01/14/2020 5:09:55 PM Referred By: Confirmed By:CHARLINE RAMOS MD
[2020-01-14 17:33] VITALS: BMI 18.5
[2020-01-14 20:01] LABS: ANISOCYTOSIS 1+; OVALOCYTE 1+; PLATELET ESTIMATE ADEQUATE
[2020-01-14] MEDS: HEPARIN NA (PORCINE) 5,000 UNITS/ML 1ML VIAL SQ SCH (21:10)
[2020-01-15] MEDS ORDERED: LEVOTHYROXINE NA 50 MCG TABLET (FP) PO SCH (07:00)
[2020-01-15 08:15] LABS: BASO % 0.4 % (0-2.0); EOS % 3.5 % (0-4.5); HEMATOCRIT 34.1 % (32.4-45.2); HEMOGLOBIN 10.4 GM/dl (10.7-15.3); LYMPH % 16.9 % (8-40); MCH 21.4 pg (25.7-33.7); MCHC 30.6 g/dl (32.0-36.0); MEAN CELL VOLUME 70.1 fl (80-96); MEAN PLT VOLUME 8.6 fl (7.5-11.1); MONO % 5.8 % (3.8-10.2); NEUT % 73.4 % (42.8-82.8); PLATELET COUNT 322 K/MM3 (134-434); RBC 4.87 M/mm3 (3.60-5.2); RDW 17.9 % (11.6-15.6)
[2020-01-15 08:18] LABS: ALBUMIN 3.2 g/dl (3.4-5.0); BILIRUBIN,TOTAL 1.2 mg/dl (0.2-1); CALCIUM 8.7 mg/dl (8.5-10); CREATININE 0.5 mg/dl (0.55-1.3); MAGNESIUM 1.9 mg/dL (1.8-2.4); POTASSIUM 3.9 mmol/L (3.5-5.1); TOT PROT 5.8 g/dl (6.4-8.2)
[2020-01-15] MEDS: HEPARIN NA (PORCINE) 5,000 UNITS/ML 1ML VIAL SQ SCH (09:19)
--- NOTE | 2020-01-15 11:09 | DS ---
Physical Exam: SUBJECTIVE: Patient seen and examined OBJECTIVE: Vital Signs Period Temp Pulse Resp BP Sys/Barriga Pulse Ox Last 24 Hr 97.8 F-98.2 F 60-70 15-18 123-156/56-70 98-100 PHYSICAL EXAM GENERAL: A&Ox2 HEAD: Normal with no signs of trauma. EYES: Pupils equal, round and reactive to light, extraocular movements intact, sclera anicteric, conjunctiva clear. No lid lag. EARS, NOSE, THROAT: Ears normal, nares patent, oropharynx clear without exudates. Moist mucous membranes. HEART: Regular rate and rhythm, normal S1 and S2 ABDOMEN: Soft, nontender, not distended MUSCULOSKELETAL: Normal range of motion at all joints. No bony deformities or tenderness. No CVA tenderness. UPPER EXTREMITIES: 2+ pulses, warm, well-perfused. No cyanosis. No clubbing. No peripheral edema. LOWER EXTREMITIES: 2+ pulses, warm, well-perfused. No calf tenderness. No peripheral edema. NEUROLOGICAL: Cranial nerves II-XII intact. Normal speech. Moves all extremities freely, self-positions easily . LABS Laboratory Results - last 24 hr 01/14/20 01/14/20 01/14/20 10:10 11:46 12:00 WBC 6.0 RBC 4.50 Hgb 9.7 L Hct 31.5 L MCV 69.9 L MCH 21.5 L MCHC 30.8 L RDW 17.6 H D Plt Count 312 MPV 8.1 Absolute Neuts (auto) 4.9 Neutrophils % No Result Required. Lymphocytes % No Result Required. Monocytes % Eosinophils % Basophils % Hypochromia 3+ Platelet Estimate Adequate Anisocytosis 1+ Microcytosis 2+ Ovalocytes 1+ Sodium 137 Potassium 3.9 Chloride 104 Carbon Dioxide 24 Anion Gap 9 BUN 16.0 Creatinine 0.5 L Est GFR (CKD-EPI)AfAm 109.73 Est GFR (CKD-EPI)NonAf 94.67 Random Glucose 92 Calcium 8.8 Magnesium Total Bilirubin 1.2 H AST 19 ALT 13 Alkaline Phosphatase 94 Total Protein 6.1 L Albumin 3.3 L Urine Color Yellow Urine Appearance Clear Urine pH 7.0 Urine Protein Negative Urine Glucose (UA) Negative Urine Ketones 1+ H Urine Blood Negative Urine Nitrite Negative Urine Bilirubin Negative Urine Urobilinogen 0.2 Ur Leukocyte Esterase Negative 01/15/20 01/15/20 07:07 07:07 WBC 5.0 RBC 4.87 Hgb 10.4 L Hct 34.1 MCV 70.1 L MCH 21.4 L MCHC 30.6 L RDW 17.9 H Plt Count 322 MPV 8.6 Absolute Neuts (auto) 3.7 Neutrophils % 73.4 Lymphocytes % 16.9 Monocytes % 5.8 Eosinophils % 3.5 Basophils % 0.4 Hypochromia Platelet Estimate Anisocytosis Microcytosis Ovalocytes Sodium 138 Potassium 3.9 Chloride 105 Carbon Dioxide 24 Anion Gap 9 BUN 14.0 Creatinine 0.5 L Est GFR (CKD-EPI)AfAm 109.73 Est GFR (CKD-EPI)NonAf 94.67 Random Glucose 84 Calcium 8.7 Magnesium 1.9 Total Bilirubin 1.2 H AST 21 ALT 13 Alkaline Phosphatase 91 Total Protein 5.8 L Albumin 3.2 L Urine Color Urine Appearance Urine pH Urine Protein Urine Glucose (UA) Urine Ketones Urine Blood Urine Nitrite Urine Bilirubin Urine Urobilinogen Ur Leukocyte Esterase HOSPITAL COURSE: Date of Admission:01/14/20 Date of Discharge: 01/15/20 74 year-old female with a PMH significant for atrial fibrillatrion not on anti- coagulation, iron-deficiency anemia, hypothyroidism, gastric ulcers, lung mass, and dementia. Placed on observation following a fall. Fall --CT head, c-spine and rib xrays unremarkable Atrial fibrillation with RVR --in sinus rhythm, rate-controlled, continued ToprolXL --not an anti-coagualation; during last admission was seen and evaluated by cardiology, decision was made to defer long-term anticoagulation pending further GI workup (capsule study) and stabilization of patient's living conditions --outpatient follow up with PCP Dr. Molina Iron-deficiency anemia --Hgb 10.4, stable Vertigo --meclizine PRN Hypothyroidism --stable, continued levothyroxine Gastric ulcers --continued protonix Lung mass --outpatient followup Dementia --continued donepezil COVID Negative --swabbed 10/5 Minutes to complete discharge: 35 Discharge Summary Problems reviewed: Yes Reason For Visit: CONFUSIONS/RECURRENT FALLS Current Active Problems Confusion (Acute) Falls frequently (Acute) Condition: Improved - Instructions Referrals: Elpidio Molina MD [Primary Care Provider] - Disposition: HOME - Home Medications Comprehensive Discharge Medication List: Ambulatory Orders Levothyroxine [Synthroid -] 50 mcg PO DAILY #30 tablet 09/11/19 Pantoprazole Sodium [Protonix -] 40 mg PO DAILY #30 tablet.ec 09/11/19 Metoprolol Succinate [Toprol XL -] 50 mg PO DAILY #30 tab.sr.24h 10/10/19 Donepezil HCl [Aricept] 10 mg PO DAILY 01/14/20 Meclizine HCl [Antivert -] 12.5 mg PO TID PRN 01/14/20 This patient is new to me today: No Emergency Visit: Yes ED Registration Date: 01/14/20 Care time: The patient presented to the Emergency Department on the above date and was hospitalized for further evaluation of their emergent condition. Critical Care patient: No - Discharge Referral Referred to [facility] Med P.C.: No
[2020-01-15] MEDS ORDERED: MECLIZINE HCL 12.5 MG TABLET PO PRN (14:30)
[2020-01-15] MEDS ORDERED: PANTOPRAZOLE 40 MG TABLET PO SCH (14:30)
[2020-01-15 14:44] VITALS: BP 120/50; PULSE 55; TEMP 98.8
[2020-01-15] MEDS ORDERED: DONEPEZIL HCL 10 MG TABLET (FP) PO SCH (22:00)
== END 2020-01-15 15:21 | disposition home or self-care (01) ==
LOC: FER 11:10 → INTOOBSV 15:53 → FM/S 15:53 → UNDOADMOB 15:53 → FM/S 19:19
PROVIDERS: ATTEND Nurse Practitioner Acute Care
PROC: 3E0234Z Introduction of Serum, Toxoid and Vaccine into Muscle, Percutaneous Approach (ICD-10-PCS; principal; 2020-01-14)
DX: R41.0 Disorientation, unspecified (principal); Z91.81 History of falling; E03.9 Hypothyroidism, unspecified; I48.91 Unspecified atrial fibrillation; R91.8 Other nonspecific abnormal finding of lung field; W18.39XA Other fall on same level, initial encounter; Y93.89 Activity, other specified; Y92.009 Unspecified place in unspecified non-institutional (private) residence as the place of occurrence of the external cause; F03.90 Unspecified dementia, unspecified severity, without behavioral disturbance, psychotic disturbance, mood disturbance, and anxiety; D64.9 Anemia, unspecified; Z29.9 Encounter for prophylactic measures, unspecified
CPT/HCPCS: 36415; 70450-TC; 71101-TC-LT-FY; 72125-TC; 80053; 81003; 83735; 85025; 93005; 96372; 99285-25; C9803; G0378; J1644; U0003

== ENCOUNTER 2020-02-19 10:55 | Emergency (ER) | payer OTHER ==
[2020-02-19] MEDS ORDERED: ACETAMINOPHEN 1000 MG/100 ML VIAL (NON FORMULARY) IVPB ONE (11:05)
[2020-02-19 11:42] VITALS: BP 119/71; PULSE 72; TEMP 98.4; BMI 18.9
[2020-02-19] MEDS ORDERED: LIDOCAINE 5% TOPICAL PATCH TP ONE (12:06)
[2020-02-19 13:11] LABS: BASO % 0.6 % (0-2.0); EOS % 2.3 % (0-4.5); HEMATOCRIT 31.2 % (32.4-45.2); HEMOGLOBIN 9.9 GM/dl (10.7-15.3); LYMPH % 12.5 % (8-40); MCH 23.1 pg (25.7-33.7); MCHC 31.6 g/dl (32.0-36.0); MEAN CELL VOLUME 72.8 fl (80-96); MEAN PLT VOLUME 8.1 fl (7.5-11.1); MONO % 6.4 % (3.8-10.2); NEUT % 78.2 % (42.8-82.8); PLATELET COUNT 343 K/MM3 (134-434); RBC 4.29 M/mm3 (3.60-5.2); RDW 20.9 % (11.6-15.6); WHITE BLOOD COUNT 7.2 K/mm3 (4.0-10.8)
[2020-02-19 13:22] LABS: INR 1.12 (0.82-1.09); PROTHROMBIN TIME (PATIENT) 12.4 SEC (10.2-13.0)
[2020-02-19 13:22] LABS: ADD RBC MORPHOLOGY YES
[2020-02-19] MEDS ORDERED: ACETAMINOPHEN INJECTION 100 ML IVPB ONE (13:24)
[2020-02-19] MEDS ORDERED: LIDOCAINE 5% TOPICAL PATCH ONE (13:24)
[2020-02-19 13:36] LABS: ALBUMIN 3.6 g/dl (3.4-5.0); CALCIUM 8.7 mg/dl (8.5-10); CREATININE 0.6 mg/dl (0.55-1.3); MAGNESIUM 2.1 mg/dL (1.8-2.4); POTASSIUM 4.2 mmol/L (3.5-5.1); TOT PROT 6.5 g/dl (6.4-8.2)
[2020-02-19 13:55] LABS: ANISOCYTOSIS 2+
[2020-02-19 14:18] LABS: LIPASE 373 U/L (73-393)
[2020-02-19] MEDS ORDERED: LIDOCAINE PATCH REMOVAL MC SCH (22:00)
== END 2020-02-19 16:46 ==
LOC: FER 10:55 → FM/S 15:03 → UNDOADMIN 15:03 → FER 16:46
PROC: 3E0333Z Introduction of Anti-inflammatory into Peripheral Vein, Percutaneous Approach (ICD-10-PCS; principal; 2020-02-19)
DX: M54.5 Low back pain (principal); W19.XXXA Unspecified fall, initial encounter
CPT/HCPCS: 36415; 70450-TC; 71101-TC-LT-FY; 72125-TC; 80053; 81003; 82550; 83690; 83735; 84443; 84484; 85025; 85610; 87086; 93005; 99285-25; C9803; J0131; U0003

== ENCOUNTER 2020-07-25 10:21 | Observation (INO) | payer OTHER ==
[2020-07-25 11:20] LABS: BASO % 0.3 % (0-2.0); EOS % 4.1 % (0-4.5); HEMATOCRIT 39.3 % (32.4-45.2); HEMOGLOBIN 12.9 GM/dl (10.7-15.3); MCH 26.4 pg (25.7-33.7); MCHC 32.8 g/dl (32.0-36.0); MEAN CELL VOLUME 80.4 fl (80-96); MEAN PLT VOLUME 7.6 fl (7.5-11.1); MONO % 5.9 % (3.8-10.2); NEUT % 70.7 % (42.8-82.8); PLATELET COUNT 288 K/MM3 (134-434); RBC 4.88 M/mm3 (3.60-5.2); RDW 16.5 % (11.6-15.6); WHITE BLOOD COUNT 4.8 K/mm3 (4.0-10.8)
[2020-07-25 11:28] LABS: INR 1.15 (0.82-1.09); PROTHROMBIN TIME (PATIENT) 12.8 SEC (10.2-13.0)
[2020-07-25 11:36] LABS: ACTIVATED PTT 28.6 SECONDS (25.2-36.5)
[2020-07-25 11:37] LABS: ALBUMIN 3.9 g/dl (3.4-5.0); ALK PHOS 117 U/L (45-117); ANION GAP 8 MMOL/L (8-16); BILIRUBIN,TOTAL 0.8 mg/dl (0.2-1); CALCIUM 8.8 mg/dl (8.5-10); CHLORIDE 106 mmol/L (98-107); CO2 25 mmol/L (21-32); CREATININE 0.6 mg/dl (0.55-1.3); GLUCOSE,RANDOM 98 mg/dl (74-106); MAGNESIUM 2.3 mg/dL (1.8-2.4); SGOT/AST 22 U/L (15-37); SGPT/ALT 16 U/L (13-61); SODIUM 139 mmol/L (136-145); TOT PROT 7.1 g/dl (6.4-8.2)
[2020-07-25 13:49] LABS: EPITHELIAL CELLS MODERATE /hpf; URINE MUCUS 2+
[2020-07-25 18:27] VITALS: BMI 17.6
[2020-07-26] MEDS ORDERED: MECLIZINE HCL 12.5 MG TABLET PO PRN (04:52)
[2020-07-26] MEDS ORDERED: CEFTRIAXONE 1 GM in DEXTROSE 5%-WATER - 50 ML IVPB SCH (05:31)
[2020-07-26] MEDS ORDERED: SODIUM CHLORIDE 0.45% 1,000 ML IV SCH (05:45)
[2020-07-26] MEDS: ACETAMINOPHEN 325 MG TABLET (FP) PO PRN ×2 (06:05→21:45)
[2020-07-26] MEDS ORDERED: cefTRIAXone SODIUM 1 GM VIAL ONE (06:30)
[2020-07-26] MEDS ORDERED: DEXTROSE 5%-WATER - 50 ML IVPB ONE (06:30)
[2020-07-26 08:02] LABS: BASO % 0.8 % (0-2.0); EOS % 5.1 % (0-4.5); HEMATOCRIT 35.1 % (32.4-45.2); HEMOGLOBIN 11.1 GM/dl (10.7-15.3); LYMPH % 18.1 % (8-40); MCH 25.6 pg (25.7-33.7); MCHC 31.5 g/dl (32.0-36.0); MEAN CELL VOLUME 81.4 fl (80-96); MEAN PLT VOLUME 8.1 fl (7.5-11.1); MONO % 6.3 % (3.8-10.2); NEUT % 69.7 % (42.8-82.8); PLATELET COUNT 283 K/MM3 (134-434); RBC 4.31 M/mm3 (3.60-5.2); RDW 16.3 % (11.6-15.6); WHITE BLOOD COUNT 4.8 K/mm3 (4.0-10.8)
[2020-07-26 08:15] LABS: ALBUMIN 2.9 g/dl (3.4-5.0); BILIRUBIN,TOTAL 0.4 mg/dl (0.2-1); CALCIUM 8.3 mg/dl (8.5-10); CREATININE 0.7 mg/dl (0.55-1.3); PHOSPHOROUS 3.2 mg/dl (2.5-4.9); TOT PROT 5.5 g/dl (6.4-8.2)
[2020-07-26] MEDS: DONEPEZIL HCL 10 MG TABLET (FP) PO SCH (10:31)
[2020-07-26] MEDS: PANTOPRAZOLE 40 MG TABLET PO SCH (10:31)
[2020-07-26] MEDS: ENOXAPARIN NA (PORCINE) 40 MG/0.4 ML DISP.SYRIN SQ SCH (10:32)
[2020-07-26] MEDS ORDERED: QUEtiapine FUMARATE 25 MG TABLET ONE (21:44)
[2020-07-26] MEDS: QUEtiapine FUMARATE 50 MG TABLET PO SCH (22:20)
[2020-07-27] MEDS ORDERED: DEXTROSE 5%-WATER - 50 ML IVPB ONE ×2 (05:51→10:09)
[2020-07-27] MEDS ORDERED: cefTRIAXone SODIUM 1 GM VIAL ONE ×2 (05:51→10:09)
[2020-07-27] MEDS: CEFTRIAXONE 1 GM in DEXTROSE 5%-WATER - 50 ML IVPB SCH (05:58)
[2020-07-27] MEDS: DONEPEZIL HCL 10 MG TABLET (FP) PO SCH (10:12)
[2020-07-27] MEDS: ENOXAPARIN NA (PORCINE) 40 MG/0.4 ML DISP.SYRIN SQ SCH (10:12)
[2020-07-27] MEDS: PANTOPRAZOLE 40 MG TABLET PO SCH (10:12)
[2020-07-27 12:00] LABS: CALCIUM 8.7 mg/dl (8.5-10); CREATININE 0.8 mg/dl (0.55-1.3)
[2020-07-27] MEDS ORDERED: SODIUM CHLORIDE 1,000 ML IV SCH (12:15)
[2020-07-27] MEDS: HYDROCORTISONE 2.5% TOPICAL CREAM 30 GM TUBE TP SCH ×2 (14:51→22:07)
[2020-07-27] MEDS: POLYETHYLENE GLYCOL 3350 119 GM BTL PO SCH (15:08)
[2020-07-27] MEDS: LEVOTHYROXINE NA 25 MCG TABLET (FP) PO SCH (18:12)
[2020-07-27] MEDS ORDERED: QUEtiapine FUMARATE 25 MG TABLET ONE (21:47)
[2020-07-27] MEDS: QUEtiapine FUMARATE 50 MG TABLET PO SCH (22:07)
[2020-07-28] MEDS: ACETAMINOPHEN 325 MG TABLET (FP) PO PRN ×2 (02:50→12:41)
[2020-07-28] MEDS: LEVOTHYROXINE NA 25 MCG TABLET (FP) PO SCH (06:55)
[2020-07-28] MEDS ORDERED: QUEtiapine FUMARATE 25 MG TABLET PO SCH (08:53)
[2020-07-28] MEDS ORDERED: cefTRIAXone SODIUM 1 GM VIAL ONE (09:18)
[2020-07-28] MEDS ORDERED: DEXTROSE 5%-WATER - 50 ML IVPB ONE (09:19)
[2020-07-28] MEDS: ENOXAPARIN NA (PORCINE) 40 MG/0.4 ML DISP.SYRIN SQ SCH (09:23)
[2020-07-28] MEDS: DONEPEZIL HCL 10 MG TABLET (FP) PO SCH (09:23)
[2020-07-28] MEDS: CEFTRIAXONE 1 GM in DEXTROSE 5%-WATER - 50 ML IVPB SCH (09:24)
[2020-07-28] MEDS: PANTOPRAZOLE 40 MG TABLET PO SCH (09:24)
[2020-07-28] MEDS: POLYETHYLENE GLYCOL 3350 119 GM BTL PO SCH (11:43)
[2020-07-28 14:11] VITALS: BP 131/58; PULSE 57; TEMP 97.4
[2020-07-28] MEDS ORDERED: ONDANSETRON 4 MG/2 ML VIAL IVPUSH ONE (15:35)
== END 2020-07-28 16:25 | disposition home or self-care (01) ==
LOC: FER 10:21 → FM/S 14:02 → UNDOADMOB 14:02 → INTOOBSV 14:02 → UNDOADMIN 17:23 → FM/S 17:23 → INTOOBSV 07-28 10:21 → OBSVTOIN 07-28 10:21
PROVIDERS: ADMIT Internal Medicine; ATTEND Internal Medicine
PROC: 3E033NZ Introduction of Analgesics, Hypnotics, Sedatives into Peripheral Vein, Percutaneous Approach (ICD-10-PCS; principal; 2020-07-26)
PROC: 3E03329 Introduction of Other Anti-infective into Peripheral Vein, Percutaneous Approach (ICD-10-PCS; 2020-07-26)
PROC: 3E023GC Introduction of Other Therapeutic Substance into Muscle, Percutaneous Approach (ICD-10-PCS; 2020-07-26)
PROC: 3E033GC Introduction of Other Therapeutic Substance into Peripheral Vein, Percutaneous Approach (ICD-10-PCS; 2020-07-26)
DX: K64.9 Unspecified hemorrhoids (principal); F03.90 Unspecified dementia, unspecified severity, without behavioral disturbance, psychotic disturbance, mood disturbance, and anxiety; I48.91 Unspecified atrial fibrillation; E05.90 Thyrotoxicosis, unspecified without thyrotoxic crisis or storm; J44.9 Chronic obstructive pulmonary disease, unspecified; K64.4 Residual hemorrhoidal skin tags; Z87.891 Personal history of nicotine dependence; D50.0 Iron deficiency anemia secondary to blood loss (chronic); R42 Dizziness and giddiness; Z91.81 History of falling; R91.8 Other nonspecific abnormal finding of lung field
CPT/HCPCS: 36415; 70450-TC; 71046-TC-FY; 72125-TC; 73130-TC-RT-FY; 73502-TC-LT-FY; 73560-TC-LT-FY; 80048; 80053; 81003; 81015; 82272; 82550; 83735; 84100; 84439; 84443; 84484; 85025; 85610; 85730; 86850; 86900; 86901; 87077; 87086; 93005; 97116-GP; 97162-GP; 99285-25; C9803; G0378; U0003; U0005

== ENCOUNTER 2020-10-07 18:25 | Inpatient (IN) | payer OTHER ==
[2020-10-07] MEDS ORDERED: SODIUM CHLORIDE 1,633 ML IV ONE (19:30)
[2020-10-07 19:49] LABS: BASO % 1.2 % (0-2.0); EOS % 2.7 % (0-4.5); HEMATOCRIT 34.8 % (32.4-45.2); HEMOGLOBIN 11.1 GM/dL (10.7-15.3); LYMPH % 20.2 % (8-40); MCH 26.4 pg (25.7-33.7); MCHC 31.9 g/dl (32.0-36.0); MEAN CELL VOLUME 82.9 fl (80-96); MEAN PLT VOLUME 7.7 fl (7.5-11.1); MONO % 7.3 % (3.8-10.2); NEUT % 68.6 % (42.8-82.8); PLATELET COUNT 247 10^3/uL (134-434); RDW 18.5 % (11.6-15.6); WHITE BLOOD COUNT 5.2 K/mm3 (4.0-10.0)
[2020-10-07 19:54] LABS: INR 1.13 (0.83-1.09); PROTHROMBIN TIME (PATIENT) 13.9 SEC (9.7-13.0)
[2020-10-07 19:57] LABS: ACTIVATED PTT 28.9 SECONDS (25.2-36.5)
[2020-10-07 20:08] LABS: VENOUS BASE EXCESS -1.3 mmol/L (-2-2); VENOUS PCO2 40.7 mmHg (38-52); VENOUS PH 7.383 (7.310-7.410)
[2020-10-07 20:16] LABS: CHLORIDE 111 mmol/L (98-107); SODIUM 142 mmol/L (136-145)
[2020-10-07 20:18] LABS: CALCIUM 8.4 mg/dL (8.5-10.1)
[2020-10-07 20:19] LABS: ALBUMIN 3.3 g/dl (3.4-5.0); ANION GAP 10 MMOL/L (8-16); BLOOD UREA NITROGEN 24.7 mg/dL (7-18); CO2 22 mmol/L (21-32); GLUCOSE,RANDOM 73 mg/dL (74-106)
[2020-10-07 20:22] LABS: CREATININE 0.6 mg/dL (0.55-1.3); SGOT/AST 40 U/L (15-37); SGPT/ALT 23 U/L (13-61)
[2020-10-07 20:23] LABS: BILIRUBIN,TOTAL 1.4 mg/dL (0.2-1); TOT PROT 6.6 g/dl (6.4-8.2)
[2020-10-07 20:25] LABS: ALK PHOS 152 U/L (45-117)
[2020-10-07] MEDS ORDERED: DEXTROSE 5%-NORMAL SALINE 1,000 ML IV SCH (20:30)
[2020-10-07 23:12] LABS: PH,URINE 5.5 (5.0-8.0); URINE APPEARANCE CLEAR; URINE BILIRUBIN NEGATIVE (NEGATIVE); URINE COLOR DK YELLOW; URINE GLUCOSE (UA) NEGATIVE (NEGATIVE); URINE KETONE 1+ (NEGATIVE); URINE LEUK ESTERASE NEGATIVE (NEGATIVE); URINE NITRITE NEGATIVE (NEGATIVE); URINE PROTEIN TRACE (NEGATIVE)
[2020-10-08] MEDS ORDERED: MECLIZINE HCL 12.5 MG TABLET PO PRN (00:41)
[2020-10-08] MEDS: SODIUM CHLORIDE 1,000 ML IV SCH (01:03)
[2020-10-08] MEDS ORDERED: LEVOTHYROXINE NA 25 MCG TABLET (FP) PO SCH (07:00)
[2020-10-08] MEDS ORDERED: LEVOTHYROXINE NA 25 MCG TABLET (FP) ONE (07:04)
[2020-10-08 07:25] LABS: BASO % 1.1 % (0-2.0); EOS % 2.9 % (0-4.5); HEMATOCRIT 38.9 % (32.4-45.2); HEMOGLOBIN 12.3 GM/dL (10.7-15.3); LYMPH % 18.3 % (8-40); MCH 26.6 pg (25.7-33.7); MCHC 31.7 g/dl (32.0-36.0); MEAN PLT VOLUME 7.6 fl (7.5-11.1); MONO % 5.9 % (3.8-10.2); NEUT % 71.8 % (42.8-82.8); PLATELET COUNT 264 10^3/uL (134-434); RBC 4.63 M/mm3 (3.60-5.2); RDW 18.4 % (11.6-15.6); WHITE BLOOD COUNT 4.5 K/mm3 (4.0-10.0)
[2020-10-08 07:34] LABS: CHLORIDE 110 mmol/L (98-107); SODIUM 143 mmol/L (136-145)
[2020-10-08 07:36] LABS: BLOOD UREA NITROGEN 24.3 mg/dL (7-18)
[2020-10-08 07:39] LABS: ALBUMIN 3.3 g/dl (3.4-5.0); ANION GAP 10 MMOL/L (8-16); CALCIUM 8.5 mg/dL (8.5-10.1); CO2 23 mmol/L (21-32); MAGNESIUM 2.4 mg/dL (1.8-2.4)
[2020-10-08 07:42] LABS: ALK PHOS 160 U/L (45-117); CREATININE 0.5 mg/dL (0.55-1.3); PHOSPHOROUS 2.8 mg/dL (2.5-4.9); SGOT/AST 21 U/L (15-37)
[2020-10-08 07:44] LABS: BILIRUBIN,TOTAL 1.6 mg/dL (0.2-1); SGPT/ALT 19 U/L (13-61); TOT PROT 6.4 g/dl (6.4-8.2)
[2020-10-08 07:56] LABS: GLUCOSE,RANDOM 63 mg/dL (74-106)
[2020-10-08] MEDS: ENOXAPARIN NA (PORCINE) 40 MG/0.4 ML DISP.SYRIN SQ SCH (10:39)
[2020-10-08] MEDS ORDERED: DONEPEZIL HCL 10 MG TABLET (FP) PO SCH (22:00)
[2020-10-08] MEDS ORDERED: QUEtiapine FUMARATE 50 MG TABLET PO SCH (22:00)
[2020-10-09] MEDS: SODIUM CHLORIDE 1,000 ML IV SCH (02:51)
[2020-10-09 07:48] LABS: HEMATOCRIT 37.5 % (32.4-45.2); HEMOGLOBIN 11.9 GM/dL (10.7-15.3); MCH 26.3 pg (25.7-33.7); MCHC 31.7 g/dl (32.0-36.0); PLATELET COUNT 251 10^3/uL (134-434); RBC 4.52 M/mm3 (3.60-5.2)
[2020-10-09 07:57] LABS: ALBUMIN 2.8 g/dl (3.4-5.0); BLOOD UREA NITROGEN 16.5 mg/dL (7-18); CALCIUM 7.9 mg/dL (8.5-10.1); MAGNESIUM 2.1 mg/dL (1.8-2.4)
[2020-10-09 08:00] LABS: CREATININE 0.4 mg/dL (0.55-1.3); PHOSPHOROUS 2.4 mg/dL (2.5-4.9)
[2020-10-09 08:02] LABS: BILIRUBIN,TOTAL 1.2 mg/dL (0.2-1); TOT PROT 5.6 g/dl (6.4-8.2)
[2020-10-09] MEDS ORDERED: PT OWN MED DRAWER 7, Y5N ONE (09:42)
[2020-10-09] MEDS: ENOXAPARIN NA (PORCINE) 40 MG/0.4 ML DISP.SYRIN SQ SCH (10:35)
[2020-10-09] MEDS: LEVOTHYROXINE SODIUM 100 MCG VIAL IVPUSH SCH (10:35)
[2020-10-09] MEDS: metoPROLOL SUCCINATE 25 MG TAB.SR.24H (FP) PO SCH (18:18)
[2020-10-09] MEDS: DONEPEZIL HCL 5 MG TABLET (FP) PO SCH (21:13)
[2020-10-09] MEDS: QUEtiapine FUMARATE 50 MG TABLET PO SCH (21:14)
[2020-10-10 08:16] LABS: BASO % 0.7 % (0-2.0); EOS % 3.5 % (0-4.5); HEMATOCRIT 38.6 % (32.4-45.2); HEMOGLOBIN 12.7 GM/dL (10.7-15.3); LYMPH % 14.8 % (8-40); MCH 26.8 pg (25.7-33.7); MCHC 32.9 g/dl (32.0-36.0); MEAN CELL VOLUME 81.5 fl (80-96); MEAN PLT VOLUME 7.5 fl (7.5-11.1); MONO % 7.4 % (3.8-10.2); NEUT % 73.6 % (42.8-82.8); PLATELET COUNT 267 10^3/uL (134-434); RBC 4.73 M/mm3 (3.60-5.2); WHITE BLOOD COUNT 4.6 K/mm3 (4.0-10.0)
[2020-10-10 08:40] LABS: BLOOD UREA NITROGEN 9.6 mg/dL (7-18)
[2020-10-10 08:43] LABS: ALBUMIN 2.9 g/dl (3.4-5.0); CREATININE 0.5 mg/dL (0.55-1.3); MAGNESIUM 2.1 mg/dL (1.8-2.4)
[2020-10-10 08:44] LABS: BILIRUBIN,TOTAL 1.1 mg/dL (0.2-1); TOT PROT 5.6 g/dl (6.4-8.2)
[2020-10-10 08:46] LABS: PHOSPHOROUS 2.4 mg/dL (2.5-4.9)
[2020-10-10] MEDS ORDERED: SODIUM PHOSPHATE - 15 MM in SODIUM CHLORIDE 250 ML IVPB ONE (09:11)
[2020-10-10] MEDS: ENOXAPARIN NA (PORCINE) 40 MG/0.4 ML DISP.SYRIN SQ SCH (10:05)
[2020-10-10] MEDS: LEVOTHYROXINE SODIUM 100 MCG VIAL IVPUSH SCH (10:05)
[2020-10-10] MEDS: SODIUM CHLORIDE 1,000 ML IV SCH (10:05)
[2020-10-10] MEDS: metoPROLOL SUCCINATE 25 MG TAB.SR.24H (FP) PO SCH (10:05)
[2020-10-10] MEDS: QUEtiapine FUMARATE 50 MG TABLET PO SCH (21:12)
[2020-10-10] MEDS: DONEPEZIL HCL 5 MG TABLET (FP) PO SCH (21:13)
[2020-10-11] MEDS: SODIUM CHLORIDE 1,000 ML IV SCH (05:44)
[2020-10-11] MEDS ORDERED: PT OWN MED DRAWER 7, Y5N ONE (06:26)
[2020-10-11] MEDS ORDERED: LIOTHYRONINE SODIUM 5 MCG TABLET PO SCH (07:00)
[2020-10-11 07:57] LABS: BASO % 0.6 % (0-2.0); EOS % 3.6 % (0-4.5); HEMATOCRIT 37.8 % (32.4-45.2); LYMPH % 20.4 % (8-40); MCH 26.3 pg (25.7-33.7); MCHC 31.7 g/dl (32.0-36.0); MEAN CELL VOLUME 83.1 fl (80-96); MEAN PLT VOLUME 8.1 fl (7.5-11.1); MONO % 8.1 % (3.8-10.2); NEUT % 67.3 % (42.8-82.8); PLATELET COUNT 238 10^3/uL (134-434); RBC 4.55 M/mm3 (3.60-5.2); RDW 18.1 % (11.6-15.6); WHITE BLOOD COUNT 5.1 K/mm3 (4.0-10.0)
[2020-10-11 08:30] LABS: ALBUMIN 2.6 g/dl (3.4-5.0)
[2020-10-11 08:31] LABS: BILIRUBIN,TOTAL 0.8 mg/dL (0.2-1); CALCIUM 7.7 mg/dL (8.5-10.1); TOT PROT 5.2 g/dl (6.4-8.2)
[2020-10-11 08:32] LABS: MAGNESIUM 2.1 mg/dL (1.8-2.4)
[2020-10-11 08:33] LABS: CREATININE 0.4 mg/dL (0.55-1.3); PHOSPHOROUS 2.8 mg/dL (2.5-4.9)
[2020-10-11] MEDS: ENOXAPARIN NA (PORCINE) 40 MG/0.4 ML DISP.SYRIN SQ SCH (09:36)
[2020-10-11] MEDS: metoPROLOL SUCCINATE 25 MG TAB.SR.24H (FP) PO SCH (09:36)
[2020-10-11] MEDS: DOCUSATE SODIUM 100 MG CAPSULE (FP) PO SCH (09:36)
[2020-10-11] MEDS: LEVOTHYROXINE SODIUM 100 MCG VIAL IVPUSH SCH (10:19)
[2020-10-11] MEDS: QUEtiapine FUMARATE 50 MG TABLET PO SCH (23:32)
[2020-10-11] MEDS: DONEPEZIL HCL 5 MG TABLET (FP) PO SCH (23:32)
[2020-10-12] MEDS: SODIUM CHLORIDE 1,000 ML IV SCH (06:03)
[2020-10-12] MEDS: LEVOTHYROXINE NA 75 MCG TABLET (FP) PO SCH (06:04)
[2020-10-12] MEDS ORDERED: LEVOTHYROXINE NA 50 MCG TABLET (FP) PO SCH (07:00)
[2020-10-12] MEDS: DOCUSATE SODIUM 100 MG CAPSULE (FP) PO SCH (09:06)
[2020-10-12] MEDS: metoPROLOL SUCCINATE 25 MG TAB.SR.24H (FP) PO SCH (09:06)
[2020-10-12] MEDS: ENOXAPARIN NA (PORCINE) 40 MG/0.4 ML DISP.SYRIN SQ SCH (09:06)
[2020-10-12] MEDS ORDERED: LIOTHYRONINE SODIUM 5 MCG TABLET PO SCH (10:00)
[2020-10-12] MEDS: QUEtiapine FUMARATE 50 MG TABLET PO SCH (21:24)
[2020-10-12] MEDS: DONEPEZIL HCL 5 MG TABLET (FP) PO SCH (21:24)
[2020-10-13] MEDS: LEVOTHYROXINE NA 75 MCG TABLET (FP) PO SCH (06:03)
[2020-10-13] MEDS: SODIUM CHLORIDE 1,000 ML IV SCH ×2 (06:03→16:51)
[2020-10-13 08:10] LABS: BASO % 0.9 % (0-2.0); EOS % 4.1 % (0-4.5); HEMATOCRIT 37.7 % (32.4-45.2); HEMOGLOBIN 12.3 GM/dL (10.7-15.3); LYMPH % 15.6 % (8-40); MCHC 32.6 g/dl (32.0-36.0); MEAN CELL VOLUME 82.8 fl (80-96); MONO % 6.9 % (3.8-10.2); NEUT % 72.5 % (42.8-82.8); PLATELET COUNT 211 10^3/uL (134-434); RBC 4.56 M/mm3 (3.60-5.2); RDW 18.4 % (11.6-15.6); WHITE BLOOD COUNT 6.1 K/mm3 (4.0-10.0)
[2020-10-13 08:33] LABS: CALCIUM 8.4 mg/dL (8.5-10.1)
[2020-10-13 08:34] LABS: ALBUMIN 2.7 g/dl (3.4-5.0); BLOOD UREA NITROGEN 12.7 mg/dL (7-18); MAGNESIUM 2.1 mg/dL (1.8-2.4)
[2020-10-13 08:37] LABS: CREATININE 0.4 mg/dL (0.55-1.3); PHOSPHOROUS 3.1 mg/dL (2.5-4.9)
[2020-10-13 08:38] LABS: BILIRUBIN,TOTAL 0.7 mg/dL (0.2-1); TOT PROT 5.5 g/dl (6.4-8.2)
[2020-10-13] MEDS: ACETAMINOPHEN 325 MG TABLET (FP) PO PRN (11:03)
[2020-10-13] MEDS: DOCUSATE SODIUM 100 MG CAPSULE (FP) PO SCH (11:04)
[2020-10-13] MEDS: metoPROLOL SUCCINATE 25 MG TAB.SR.24H (FP) PO SCH (11:04)
[2020-10-13] MEDS: DONEPEZIL HCL 5 MG TABLET (FP) PO SCH (21:48)
[2020-10-13] MEDS: QUEtiapine FUMARATE 50 MG TABLET PO SCH (21:48)
[2020-10-14] MEDS: SODIUM CHLORIDE 1,000 ML IV SCH ×2 (05:18→16:58)
[2020-10-14] MEDS: LEVOTHYROXINE NA 75 MCG TABLET (FP) PO SCH (06:03)
[2020-10-14] MEDS: DOCUSATE SODIUM 100 MG CAPSULE (FP) PO SCH ×2 (11:37→17:04)
[2020-10-14] MEDS: metoPROLOL SUCCINATE 25 MG TAB.SR.24H (FP) PO SCH ×2 (11:37→17:04)
[2020-10-14 16:52] VITALS: BMI 20.2
[2020-10-14] MEDS: ACETAMINOPHEN 325 MG TABLET (FP) PO PRN (16:53)
[2020-10-14] MEDS: QUEtiapine FUMARATE 50 MG TABLET PO SCH (21:34)
[2020-10-14] MEDS: DONEPEZIL HCL 5 MG TABLET (FP) PO SCH (21:34)
[2020-10-15] MEDS: SODIUM CHLORIDE 1,000 ML IV SCH ×2 (05:44→18:29)
[2020-10-15] MEDS: LEVOTHYROXINE NA 75 MCG TABLET (FP) PO SCH (06:19)
[2020-10-15] MEDS ORDERED: MECLIZINE HCL 12.5 MG TABLET PO PRN (07:39)
[2020-10-15 08:15] LABS: BASO % 0.9 % (0-2.0); EOS % 5.2 % (0-4.5); HEMATOCRIT 39.8 % (32.4-45.2); MCH 26.6 pg (25.7-33.7); MCHC 32.6 g/dl (32.0-36.0); MEAN CELL VOLUME 81.8 fl (80-96); MEAN PLT VOLUME 7.6 fl (7.5-11.1); MONO % 7.9 % (3.8-10.2); PLATELET COUNT 246 10^3/uL (134-434); RBC 4.87 M/mm3 (3.60-5.2); RDW 18.1 % (11.6-15.6); WHITE BLOOD COUNT 5.6 K/mm3 (4.0-10.0)
[2020-10-15 08:31] LABS: CALCIUM 8.4 mg/dL (8.5-10.1)
[2020-10-15 08:32] LABS: ALBUMIN 2.8 g/dl (3.4-5.0); MAGNESIUM 2.1 mg/dL (1.8-2.4)
[2020-10-15 08:35] LABS: CREATININE 0.5 mg/dL (0.55-1.3); PHOSPHOROUS 3.7 mg/dL (2.5-4.9)
[2020-10-15 08:37] LABS: BILIRUBIN,TOTAL 0.8 mg/dL (0.2-1); TOT PROT 5.8 g/dl (6.4-8.2)
[2020-10-15] MEDS: metoPROLOL SUCCINATE 25 MG TAB.SR.24H (FP) PO SCH (17:01)
[2020-10-15] MEDS: ENOXAPARIN NA (PORCINE) 40 MG/0.4 ML DISP.SYRIN SQ SCH (17:01)
[2020-10-15] MEDS: DOCUSATE SODIUM 100 MG CAPSULE (FP) PO SCH (17:01)
[2020-10-15] MEDS: QUEtiapine FUMARATE 50 MG TABLET PO SCH (21:01)
[2020-10-15] MEDS: DONEPEZIL HCL 5 MG TABLET (FP) PO SCH (21:02)
[2020-10-16] MEDS: SODIUM CHLORIDE 1,000 ML IV SCH ×3 (05:32→16:58)
[2020-10-16] MEDS: LEVOTHYROXINE NA 75 MCG TABLET (FP) PO SCH (06:22)
[2020-10-16] MEDS: ACETAMINOPHEN 325 MG TABLET (FP) PO PRN (09:11)
[2020-10-16] MEDS: metoPROLOL SUCCINATE 25 MG TAB.SR.24H (FP) PO SCH (09:11)
[2020-10-16] MEDS: DOCUSATE SODIUM 100 MG CAPSULE (FP) PO SCH (09:11)
[2020-10-16] MEDS: ENOXAPARIN NA (PORCINE) 40 MG/0.4 ML DISP.SYRIN SQ SCH (09:12)
[2020-10-16] MEDS: QUEtiapine FUMARATE 50 MG TABLET PO SCH (21:21)
[2020-10-16] MEDS: DONEPEZIL HCL 5 MG TABLET (FP) PO SCH (21:22)
[2020-10-17] MEDS: SODIUM CHLORIDE 1,000 ML IV SCH (05:40)
[2020-10-17] MEDS: LEVOTHYROXINE NA 75 MCG TABLET (FP) PO SCH (06:12)
[2020-10-17 09:30] LABS: BASO % 0.8 % (0-2.0); EOS % 4.6 % (0-4.5); HEMATOCRIT 39.4 % (32.4-45.2); HEMOGLOBIN 12.3 GM/dL (10.7-15.3); LYMPH % 18.6 % (8-40); MCH 26.3 pg (25.7-33.7); MCHC 31.2 g/dl (32.0-36.0); MEAN CELL VOLUME 84.1 fl (80-96); MEAN PLT VOLUME 8.1 fl (7.5-11.1); MONO % 8.3 % (3.8-10.2); NEUT % 67.7 % (42.8-82.8); PLATELET COUNT 252 10^3/uL (134-434); RBC 4.68 M/mm3 (3.60-5.2); RDW 18.4 % (11.6-15.6); WHITE BLOOD COUNT 5.3 K/mm3 (4.0-10.0)
[2020-10-17] MEDS: ENOXAPARIN NA (PORCINE) 40 MG/0.4 ML DISP.SYRIN SQ SCH (09:30)
[2020-10-17] MEDS: DOCUSATE SODIUM 100 MG CAPSULE (FP) PO SCH (09:31)
[2020-10-17] MEDS: metoPROLOL SUCCINATE 25 MG TAB.SR.24H (FP) PO SCH (09:31)
[2020-10-17] MEDS: ACETAMINOPHEN 325 MG TABLET (FP) PO PRN (09:31)
[2020-10-17 09:50] LABS: CALCIUM 8.8 mg/dL (8.5-10.1)
[2020-10-17 09:51] LABS: BLOOD UREA NITROGEN 16.8 mg/dL (7-18); MAGNESIUM 2.3 mg/dL (1.8-2.4)
[2020-10-17 09:54] LABS: CREATININE 0.6 mg/dL (0.55-1.3); PHOSPHOROUS 3.6 mg/dL (2.5-4.9)
[2020-10-17 09:55] LABS: BILIRUBIN,TOTAL 0.8 mg/dL (0.2-1); TOT PROT 6.1 g/dl (6.4-8.2)
[2020-10-17 14:10] VITALS: BP 107/56; PULSE 66; TEMP 97.7
== END 2020-10-17 18:07 | DRG 312 ==
LOC: JER 18:25 → INTOOBSV 22:08 → JERBED 22:08 → J4W 10-08 12:11 → J7W 10-12 18:04 → OBSVTOIN 10-15 09:47
PROVIDERS: ADMIT Hospitalist; ATTEND Internal Medicine
DX: R55 Syncope and collapse (principal); E43 Unspecified severe protein-calorie malnutrition; J90 Pleural effusion, not elsewhere classified; R64 Cachexia; J44.9 Chronic obstructive pulmonary disease, unspecified; E03.9 Hypothyroidism, unspecified; D64.9 Anemia, unspecified; Z86.73 Personal history of transient ischemic attack (TIA), and cerebral infarction without residual deficits; K21.9 Gastro-esophageal reflux disease without esophagitis; D50.9 Iron deficiency anemia, unspecified; R29.6 Repeated falls; R16.0 Hepatomegaly, not elsewhere classified; I48.0 Paroxysmal atrial fibrillation; K64.9 Unspecified hemorrhoids; G30.9 Alzheimer's disease, unspecified; F02.80 Dementia in other diseases classified elsewhere, unspecified severity, without behavioral disturbance, psychotic disturbance, mood disturbance, and anxiety; Z68.20 Body mass index [BMI] 20.0-20.9, adult; R91.8 Other nonspecific abnormal finding of lung field; W18.30XA Fall on same level, unspecified, initial encounter; Y92.098 Other place in other non-institutional residence as the place of occurrence of the external cause
CPT/HCPCS: 36415; 70450-TC; 71250-TC; 72125-TC; 74176-TC; 80053; 81003; 82550; 82607; 82747; 82803; 83605; 83735; 84100; 84439; 84443; 84481; 84484; 85014; 85025; 85027; 85610; 85730; 86850; 86900; 86901; 87040; 87086; 93005; 93010; 93306-TC; 93880-TC; 97116-GP; 97161-GP; 99285-25; C9803; G0378; U0003; U0005

== ENCOUNTER 2021-02-09 16:07 | Emergency (ER) | payer OTHER ==
[2021-02-09] MEDS ORDERED: ACETAMINOPHEN 500 MG TABLET (FP) PO ONE (17:11)
[2021-02-09 17:16] LABS: BASO % 0.4 % (0-2.0); EOS % 2.9 % (0-4.5); HEMATOCRIT 35.4 % (32.4-45.2); HEMOGLOBIN 11.8 GM/dL (10.7-15.3); LYMPH % 14.2 % (8-40); MCH 25.7 pg (25.7-33.7); MCHC 33.4 g/dl (32.0-36.0); MEAN PLT VOLUME 7.4 fl (7.5-11.1); MONO % 9.3 % (3.8-10.2); NEUT % 73.2 % (42.8-82.8); PLATELET COUNT 276 10^3/uL (134-434); RDW 16.1 % (11.6-15.6); WHITE BLOOD COUNT 7.7 K/mm3 (4.0-10.0)
[2021-02-09] MEDS ORDERED: ACETAMINOPHEN 325 MG TABLET (FP) ONE (17:18)
[2021-02-09 17:41] LABS: CHLORIDE 105 mmol/L (98-107); SODIUM 138 mmol/L (136-145)
[2021-02-09 17:43] LABS: CALCIUM 8.7 mg/dL (8.5-10.1)
[2021-02-09 17:44] LABS: ALBUMIN 2.8 g/dl (3.4-5.0); ANION GAP 8 MMOL/L (8-16); BLOOD UREA NITROGEN 12.2 mg/dL (7-18); CO2 25 mmol/L (21-32); GLUCOSE,RANDOM 109 mg/dL (74-106)
[2021-02-09 17:47] LABS: CREATININE 0.5 mg/dL (0.55-1.3); SGOT/AST 19 U/L (15-37); SGPT/ALT 18 U/L (13-61)
[2021-02-09 17:48] LABS: BILIRUBIN,TOTAL 0.9 mg/dL (0.2-1)
[2021-02-09 17:49] LABS: TOT PROT 6.4 g/dl (6.4-8.2)
[2021-02-09 17:50] LABS: ALK PHOS 105 U/L (45-117)
[2021-02-09 18:51] LABS: INR 1.09 (0.83-1.09); PROTHROMBIN TIME (PATIENT) 12.8 SEC (9.7-13.0)
[2021-02-09 18:54] LABS: ACTIVATED PTT 27.6 SECONDS (25.2-36.5)
[2021-02-09 20:25] LABS: PH,URINE 7.5 (5.0-8.0); URINE APPEARANCE CLEAR; URINE BILIRUBIN NEGATIVE (NEGATIVE); URINE COLOR YELLOW; URINE GLUCOSE (UA) NEGATIVE (NEGATIVE); URINE KETONE NEGATIVE (NEGATIVE); URINE LEUK ESTERASE NEGATIVE (NEGATIVE); URINE NITRITE NEGATIVE (NEGATIVE); URINE PROTEIN NEGATIVE (NEGATIVE); URINE UROBILINOGEN 0.2 mg/dL (0.2-1.0)
[2021-02-10 09:26] VITALS: BP 124/55; PULSE 63; TEMP 98.1
== END 2021-02-10 09:19 ==
LOC: JER 16:07
DX: M54.50 Low back pain, unspecified (principal); F03.90 Unspecified dementia, unspecified severity, without behavioral disturbance, psychotic disturbance, mood disturbance, and anxiety; W19.XXXA Unspecified fall, initial encounter
CPT/HCPCS: 36415; 70450-TC; 71045-TC-FY; 72125-TC; 73060-TC-LT-FY; 73090-TC-LT-FY; 80053; 81003; 82550; 84484; 85025; 85610; 85730; 87086; 93005; 93010; 99285-25; C9803; U0003; U0005